=== PATIENT | female | born 1945 | race Caucasian/White ===

== ENCOUNTER → 2019-03-03 10:32 | Outpatient (CLI) | payer MEDICARE, SELFPAY ==
--- NOTE | 2019-03-03 | DI.MG.S_ITS ---
BILATERAL DIGITAL SCREENING MAMMOGRAM 3D/2D WITH CAD: 03/03/2019 CLINICAL: Routine screening. Family history of breast cancer. Comparison is made to exams dated: 02/17/2018 mammogram, 11/29/2016 mammogram - [facility], and 09/19/2015 mammogram - [facility]. The tissue of both breasts is heterogeneously dense. This may lower the sensitivity of mammography. Current study was also evaluated with a Computer Aided Detection (CAD) system. No significant masses, calcifications, or other findings are seen in either breast. There has been no significant interval change. IMPRESSION: NEGATIVE There is no mammographic evidence of malignancy. A 1 year screening mammogram is recommended. This exam was interpreted at Station ID: [id number]. NOTE: For mammograms, a report in lay terms will be sent to the patient. Approximately 15% of breast malignancies will not be visualized mammographically. In the management of a palpable breast mass, a negative mammogram must not discourage biopsy of a clinically suspicious lesion. Electronically Signed By: Cabrera pinto/deirdre:03/03/2019 12:46:49 letter sent: Normal Exam ACR BI-RADS Category 1: Negative 3341F
== END ==
PROVIDERS: Family Provider Family Medicine; PCP Family Medicine; Visit Provider Family Medicine
DX: Z12.31 Encounter for screening mammogram for malignant neoplasm of breast (principal); Z80.3 Family history of malignant neoplasm of breast
CPT/HCPCS: 77063; 77067

== ENCOUNTER → 2020-08-05 11:14 | Outpatient (CLI) | payer MEDICARE, SELFPAY ==
--- NOTE | 2020-08-05 | DI.MG.S_ITS ---
BILATERAL DIGITAL SCREENING MAMMOGRAM 3D/2D WITH CAD: 08/05/2020 CLINICAL: Routine screening. Family history of breast cancer. Comparison is made to exams dated: 03/03/2019 mammogram, 02/17/2018 mammogram, 11/29/2016 mammogram - [facility], 09/19/2015 mammogram, and 07/23/2014 mammogram - [facility]. The tissue of both breasts is heterogeneously dense. This may lower the sensitivity of mammography. Current study was also evaluated with a Computer Aided Detection (CAD) system. No significant masses, calcifications, or other findings are seen in either breast. There has been no significant interval change. IMPRESSION: NEGATIVE There is no mammographic evidence of malignancy. A 1 year screening mammogram is recommended. This exam was interpreted at Station ID: [id number]. NOTE: For mammograms, a report in lay terms will be sent to the patient. Approximately 15% of breast malignancies will not be visualized mammographically. In the management of a palpable breast mass, a negative mammogram must not discourage biopsy of a clinically suspicious lesion. Electronically Signed By: Kobe fair/deirdre:08/05/2020 11:49:53 letter sent: Normal Exam ACR BI-RADS Category 1: Negative 3341F
== END ==
PROVIDERS: Family Provider Family Medicine; PCP Family Medicine; Referring Provider Family Medicine; Visit Provider Family Medicine
DX: Z12.31 Encounter for screening mammogram for malignant neoplasm of breast (principal); Z80.3 Family history of malignant neoplasm of breast
CPT/HCPCS: 77063; 77067

== ENCOUNTER → 2021-03-22 08:47 | Outpatient (CLI) | payer MEDICARE, SELFPAY ==
--- NOTE | 2021-03-22 | DI.RAD.S_ITS ---
PROCEDURE: XR CHEST 2V INDICATIONS: COUGH TECHNIQUE: 2 views of the chest were acquired. COMPARISON: None. FINDINGS: Surgical changes and devices: None. Lungs and pleura: Lungs are clear. No pleural effusions or pneumothorax. Mediastinum: Mediastinal contours are normal. Heart size is normal. Bones and chest wall: No suspicious bony abnormalities. Soft tissues appear unremarkable. IMPRESSION: Normal for age, source of current cough symptoms is not seen. Dictated by: David Burgos M.D. on 03/22/2021 at 11:16 Approved by: David Burgos M.D. on 03/22/2021 at 11:16
[2021-03-22 09:49] LABS: Add Manual Diff / Slide Review NO; Basophils Absolute Auto 0 /uL (0-100); Basophils Percent Auto 0.6 % (0-2); Eosinophils Absolute Auto 100 /uL (0-450); Eosinophils Percent Auto 1.1 % (2-4); Hematocrit 43.5 % (36-46); Hemoglobin 14.7 g/dL (12.0-16.0); Lymphocytes Absolute Auto 1500 /uL (1100-4500); Lymphocytes Percent Auto 23.7 % (25-40); Mean Corpuscular HGB Conc 33.9 % (30-36); Mean Corpuscular Hemoglobin 32.1 PG (26-34); Mean Corpuscular Volume 94.6 fL (80-100); Monocytes Absolute Auto 400 /uL (0-900); Monocytes Percent Auto 6.5 % (3-14); Neutrophils Absolute Auto 4400 /uL (1500-7000); Neutrophils Percent Auto 68.1 % (50-75); Platelet Count 294 X10^3/uL (150-400); Red Cell Distribution Width 13.5 % (11.6-14.8); White Blood Cell Count 6.4 X10^3/uL (4.5-11.0)
[2021-03-22 10:39] LABS: Alanine Aminotransferase 19 IU/L (<35); Albumin 4.5 g/dL (3.5-5.0); Albumin Globulin Ratio 1.4 (1.0-2.8); Alkaline Phosphatase 77 U/L (38-126); Aspartate Aminotransferase 30 IU/L (14-36); BUN Creatinine Ratio 20.3 (6-22); Bilirubin Total 0.6 mg/dL (0.2-1.3); Blood Urea Nitrogen 13 mg/dL (7-17); Calcium 9.5 mg/dL (8.4-10.2); Carbon Dioxide 23 mmol/L (22-32); Chloride 106 mmol/L (98-107); Cholesterol 225 mg/dL (140-199); Estimated Glomerular Filt Rate > 60.0 mL/min (>60); Globulin 3.3 g/dL (1.7-4.1); Glucose 106 mg/dL (80-110); HDL Cholesterol 48 mg/dL (40-60); HEMOLYSIS 15 (0-50); LDL Cholesterol Calculated 146 mg/dL (<100); Potassium 3.5 mmol/L (3.4-5.1); Sodium 138 mmol/L (137-145); Total Protein 7.8 g/dL (6.3-8.2); Triglycerides 156 mg/dL (35-150)
== END ==
PROVIDERS: Family Provider Family Medicine; PCP Family Medicine; Referring Provider Family Medicine; Visit Provider Family Medicine
DX: R05 Cough (principal); Z79.899 Other long term (current) drug therapy; Z13.220 Encounter for screening for lipoid disorders
CPT/HCPCS: 36415; 71046; 80053; 80061; 85025

== ENCOUNTER → 2021-09-26 13:53 | Outpatient (CLI) | payer MEDICARE, SELFPAY ==
--- NOTE | 2021-09-26 13:54 | DI.MG.S_ITS ---
BILATERAL DIGITAL SCREENING MAMMOGRAM 3D/2D WITH CAD: 09/26/2021 CLINICAL: Routine screening. Family history of breast cancer. Comparison is made to exams dated: 08/05/2020 mammogram, 03/03/2019 mammogram, and 02/17/2018 mammogram - [facility]. The tissue of both breasts is heterogeneously dense. This may lower the sensitivity of mammography. Current study was also evaluated with a Computer Aided Detection (CAD) system. No significant masses, calcifications, or other findings are seen in either breast. There has been no significant interval change. IMPRESSION: NEGATIVE There is no mammographic evidence of malignancy. A 1 year screening mammogram is recommended. This exam was interpreted at Station ID: [id number]. NOTE: For mammograms, a report in lay terms will be sent to the patient. Approximately 15% of breast malignancies will not be visualized mammographically. In the management of a palpable breast mass, a negative mammogram must not discourage biopsy of a clinically suspicious lesion. Electronically Signed By: Alexandra fowler/deirdre:09/26/2021 14:47:02 letter sent: Normal Exam ACR BI-RADS Category 1: Negative 3341F
== END ==
PROVIDERS: Family Provider Family Medicine; PCP Family Medicine; Referring Provider Family Medicine; Visit Provider Family Medicine
DX: Z12.31 Encounter for screening mammogram for malignant neoplasm of breast (principal); Z80.3 Family history of malignant neoplasm of breast
CPT/HCPCS: 77063; 77067

== ENCOUNTER 2022-05-22 11:02 | Observation (INO) | payer MEDICARE, SELFPAY ==
[2022-05-22] VITALS (16 sets, daily range): BP systolic 114–165; BP diastolic 62–85; PULSE 60–79; RESP 12–25; TEMP 36.2–37.4; O2SAT 92–99; BMI 27.4
--- NOTE | 2022-05-22 11:26 | DI.RAD.S_ITS ---
PROCEDURE: XR CHEST 2V INDICATIONS: shortness of breath TECHNIQUE: 2 views of the chest were acquired. COMPARISON: [facility], CR, XR CHEST 2V, 03/22/2021, 9:16. FINDINGS: Surgical changes and devices: None. Lungs and pleura: Lungs are clear. No pleural effusions or pneumothorax. Mediastinum: Mediastinal contours are normal. Heart size is normal. Bones and chest wall: No suspicious bony abnormalities. Soft tissues appear unremarkable. IMPRESSION: No acute cardiopulmonary disease. Dictated by: Alexandra Barrera M.D. on 05/22/2022 at 11:47 Approved by: Alexandra Barrera M.D. on 05/22/2022 at 11:47
[2022-05-22 12:01] LABS: Add Manual Diff / Slide Review NO; Basophils Absolute Auto 100 /uL (0-100); Basophils Percent Auto 1.2 % (0-2); Eosinophils Absolute Auto 0 /uL (0-450); Eosinophils Percent Auto 0.5 % (2-4); Hematocrit 43.1 % (36-46); Hemoglobin 14.9 g/dL (12.0-16.0); Lymphocytes Absolute Auto 1400 /uL (1100-4500); Mean Corpuscular HGB Conc 34.7 % (30-36); Mean Corpuscular Hemoglobin 31.8 PG (26-34); Mean Corpuscular Volume 91.7 fL (80-100); Monocytes Absolute Auto 400 /uL (0-900); Monocytes Percent Auto 4.4 % (3-14); Neutrophils Absolute Auto 7200 /uL (1500-7000); Neutrophils Percent Auto 78.9 % (50-75); Platelet Count 273 X10^3/uL (150-400); Red Cell Distribution Width 13.2 % (11.6-14.8); White Blood Cell Count 9.2 X10^3/uL (4.5-11.0)
[2022-05-22 12:18] LABS: Lactate (Lactic Acid) 1.5 mmol/L (0.7-2.1)
[2022-05-22 12:19] LABS: Alanine Aminotransferase 23 IU/L (<35); Albumin 4.6 g/dL (3.5-5.0); Albumin Globulin Ratio 1.5 (1.0-2.8); Alkaline Phosphatase 82 U/L (38-126); Aspartate Aminotransferase 30 IU/L (14-36); BUN Creatinine Ratio 22.4 (6-22); Bilirubin Total 0.6 mg/dL (0.2-1.3); Blood Urea Nitrogen 17 mg/dL (7-17); Calcium 9.5 mg/dL (8.4-10.2); Carbon Dioxide 23 mmol/L (22-32); Chloride 106 mmol/L (98-107); Estimated Glomerular Filt Rate > 60 mL/min (>60); Globulin 3.1 g/dL (1.7-4.1); Glucose 117 mg/dL (80-110); HEMOLYSIS < 15 (0-50); Potassium 3.6 mmol/L (3.4-5.1); Sodium 139 mmol/L (137-145); Total Protein 7.7 g/dL (6.3-8.2)
[2022-05-22 12:56] LABS: Creatine Kinase 76 U/L (30-135)
[2022-05-22 12:57] LABS: Lipase 44 U/L (23-300)
[2022-05-22 13:07] LABS: NT-proBNP (BNP-Adult 18+) 162 pg/mL (<450)
[2022-05-22 13:08] LABS: Troponin I < 0.012 ng/mL (0.01-0.034)
--- NOTE | 2022-05-22 13:11 | PC.NURSE ---
Reports epigastric chest pain and abdominal pain x 2 days. Also has shortness of breath after exertion. Has history of cough x 6 months. Pinched nerves in my neck and back that have also been bothering me. Did not take any pain meds today that she has been taking for her neck/back pain. Reports that pain meds did not help yesterday with her chest pain.
--- NOTE | 2022-05-22 14:22 | ED_ITS ---
HPI - Chest Pain General Chief Complaint: Chest Pain Stated Complaint: SOB, pinched nerves in neck/back x 4 days Time Seen by Provider: 05/22/22 11:42 Source: patient Mode of arrival: Ambulatory Limitations: no limitations History of Present Illness HPI narrative: Patient is a 76-year-old female who has a history of chronic neck and back pain presents today with ongoing worsening pain. She also has intermittent shortness of breath however today she noticed significant shortness of breath going up the stairs. She also had some mild chest discomfort as well which radiated to her left. Her biggest complaint seems to be her worsening neck pain. Everything seems to have been going on for quite time. She has no weakness. She has no abdominal pain nausea or vomiting. She has not had any fever or chills. Related Data Home Medications Medication Instructions Recorded Confirmed [lidocaine] 5 TD PRN ##0 09/25/16 07/03/18 ibuprofen 200 mg capsule (Advil PRN ##0 09/25/16 07/03/18 Liqui-Gel) Previous Rx's Medication Instructions Recorded lorazepam 0.5 mg tablet 0.5 mg PO BID PRN anxiety #60 tabs 07/03/18 Allergies Allergy/AdvReac Type Severity Reaction Status Date / Time iodine [IODINE] AdvReac Severe Anaphylaxis Verified 05/22/22 11:23 Review of Systems Review of Systems Narrative: GENERAL: Denies chills, fatigue, malaise, fever, sweats, travel HEENT: Denies sinus pain, ear pain, sore throat, difficulty swallowing, neck pain RESPIRATORY: + increasing shortness of breath with exertion CARDIOVASCULAR: Denies chest pain, palpitations, orthopnea, edema GASTROINTESTINAL: Denies nausea, vomiting, abdominal pain, diarrhea, constipation, melena. : Denies dysuria, frequency, incontinence, hematuria, urinary retention, flank pain. MUSCULOSKELETAL: Denies weakness, joint pain, or bony pain SKIN: No rash, no erythema, no pruritus NEUROLOGIC: Denies weakness, dizziness, headache, numbness, change in speech, confusion PSYCHIATRIC: No concerning psychosocial issues. 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 Social History Smoking Status: Never smoker Smoking Status: Never smoker alcohol intake frequency: holidays/special occasions only Substance Use Type: does not use Exam Initial Vital Signs Initial Vital Signs: Vital Signs Temperature 97.2 F L 05/22/22 11:23 Pulse Rate 60 05/22/22 11:23 Respiratory Rate 16 05/22/22 11:23 Blood Pressure 157/73 H 05/22/22 11:23 Pulse Oximetry 98 05/22/22 11:23 Oxygen Delivery Method 05/22/22 11:23 GENERAL: Alert pleasant 76-year-old female appears uncomfortable HEENT: Head atraumatic,EOMI, pupils reactive, face symmetric, [moist] mucous membranes CARDIOVASCULAR: Regular rate and rhythm without murmurs, rubs or gallops. RESPIRATORY: Breath sounds equal bilaterally, no wheezes rales or rhonchi. ABDOMEN: Soft, nontender. Normoactive bowel sounds all 4 quadrants. No guardin g or rebound. EXTREMITIES: Normal range of motion, no clubbing or edema. Neurovascularly intact NEUROLOGICAL: Alert and oriented x4. 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 Scores HEART Score Heart Score history: Highly Suspicious Heart Score EKG: Non-Specific repolarization disturbance Heart Score Age: > or = 65 years old Heart Score risk factors: 1-2 risk factors Heart Score troponin: < or = to normal limit Heart Score Total: 6 Course Orders Ordered: ED Orders 05/22/22 11:26 XR chest 2V Stat EKG-12 Lead Stat 05/22/22 11:35 A1C [Hemoglobin A1C% w Est Avg Glu] Stat Complete Blood Count AUTO DIFF Stat Comprehensive Metabolic Panel Stat D Dimer Stat Lactate (Lactic Acid) Stat Lipase Stat NT-proBNP (BNP-Adult 18+) Stat Troponin & CK Cardiac Panel Stat 05/22/22 14:30 Trop I [Troponin I] Stat 05/22/22 17:56 EC echo doppler complete Stat stress [NM tami perf SPECT rest & str] Stat 05/22/22 22:30 Troponin I Q8H 05/23/22 05:00 BMP [Basic Metabolic Panel] DAILY CBC Auto Diff [Complete Blood Count AUTO DIFF] DAILY 05/24/22 05:00 BMP [Basic Metabolic Panel] DAILY CBC Auto Diff [Complete Blood Count AUTO DIFF] DAILY 05/25/22 05:00 BMP [Basic Metabolic Panel] DAILY CBC Auto Diff [Complete Blood Count AUTO DIFF] DAILY Acetaminophen (Acetaminophen 325 Mg Tablet) 650 mg PO Q6HR PRN PRN Reason: Fever/Mild Pain (1-3) Aspirin (Aspirin Ec 81 Mg Tablet) 81 mg PO DAILY [facility] Enoxaparin Sodium (Enoxaparin 40 Mg/0.4 Ml Syringe) 40 mg SUBCUT DAILY GLO Morphine Sulfate (Morphine 2 Mg/Ml Inj) 2 mg IV Q4HR PRN PRN Reason: Chest Pain Potassium Chloride (Potassium Chloride 20 Meq Tab) 40 meq PO NOW ONE Stop: 05/22/22 19:08 Discontinued Medications Albuterol/Ipratropium (Albuterol/Ipratropium 3 Ml Ampul) 3 ml INH NOW ONE Stop: 05/22/22 14:35 Last Admin: 05/22/22 15:00 Dose: 3 ml Documented By: TANIA Aspirin (Aspirin 81 Mg Chew Tab) 324 mg PO NOW ONE Stop: 05/22/22 17:06 Last Admin: 05/22/22 17:26 Dose: 324 mg Documented By: TANIA Hydromorphone HCl (Hydromorphone 0.5 Mg Inj) 0.5 mg IV NOW ONE Stop: 05/22/22 14:35 Last Admin: 05/22/22 15:00 Dose: 0.5 mg Documented By: TANIA Vital Signs Vital signs: Vital Signs - 8 hr 05/22/22 13:03 05/22/22 13:05 05/22/22 13:05 Pulse Rate 65 61 Respiratory Rate 22 22 Blood Pressure 156/74 H Pulse Oximetry 94 98 Oxygen Delivery Method Room Air 05/22/22 13:30 05/22/22 13:31 05/22/22 13:31 Pulse Rate 61 61 Respiratory Rate 18 12 Blood Pressure 146/62 H Pulse Oximetry 95 95 Oxygen Delivery Method 05/22/22 14:00 05/22/22 14:00 05/22/22 14:30 Pulse Rate 63 Respiratory Rate 15 Blood Pressure 153/71 H 114/80 Pulse Oximetry 92 Oxygen Delivery Method 05/22/22 14:30 05/22/22 15:00 05/22/22 15:00 Pulse Rate 72 75 Respiratory Rate 22 Blood Pressure 117/76 Pulse Oximetry 96 95 Oxygen Delivery Method 05/22/22 15:18 05/22/22 15:30 05/22/22 15:30 Pulse Rate 67 72 Respiratory Rate 16 20 Blood Pressure 117/82 Pulse Oximetry 94 95 Oxygen Delivery Method Room Air 05/22/22 16:00 05/22/22 16:00 05/22/22 16:30 Pulse Rate 73 Respiratory Rate 20 Blood Pressure 152/70 H 139/67 Pulse Oximetry 94 Oxygen Delivery Method 05/22/22 16:30 05/22/22 17:00 05/22/22 17:01 Pulse Rate 78 79 79 Respiratory Rate 16 15 Blood Pressure Pulse Oximetry 92 94 93 Oxygen Delivery Method 05/22/22 17:01 05/22/22 17:30 05/22/22 17:30 Pulse Rate 77 Respiratory Rate 25 H Blood Pressure 165/74 H 143/83 H Pulse Oximetry 94 Oxygen Delivery Method MDM - Chest Pain Lab Data Result diagrams: 05/22/22 11:35 05/22/22 11:35 Labs: Lab Results 05/22/22 05/22/22 05/22/22 Range/Units 11:35 11:35 11:35 WBC 9.2 (4.5-11.0) X10^3/uL RBC 4.70 (4.0-5.2) X10^6/uL Hgb 14.9 (12.0-16.0) g/dL Hct 43.1 (36-46) % MCV 91.7 (80-100) fL MCH 31.8 (26-34) PG MCHC 34.7 (30-36) % RDW 13.2 (11.6-14.8) % Plt Count 273 (150-400) X10^3/uL Neut % (Auto) 78.9 H (50-75) % Lymph % (Auto) 15.0 L (25-40) % Mckinley % (Auto) 4.4 (3-14) % Eos % (Auto) 0.5 L (2-4) % Baso % (Auto) 1.2 (0-2) % Neut # (Auto) 7200 H (4877-6407) /uL Lymph # (Auto) 1400 (4500-6429) /uL Mckinley # (Auto) 400 (0-900) /uL Eos # (Auto) 0 (0-450) /uL Baso # (Auto) 100 (0-100) /uL D-Dimer (<230) ng/mL Sodium 139 (137-145) mmol/L Potassium 3.6 (3.4-5.1) mmol/L Chloride 106 (98-107) mmol/L Carbon Dioxide 23 (22-32) mmol/L BUN 17 (7-17) mg/dL Creatinine 0.76 (0.52-1.04) mg/dL Estimated GFR > 60 (>60) mL/min BUN/Creatinine Ratio 22.4 H (6-22) Glucose 117 H (80-110) mg/dL Lactate 1.5 (0.7-2.1) mmol/L Calcium 9.5 (8.4-10.2) mg/dL Total Bilirubin 0.6 (0.2-1.3) mg/dL AST 30 (14-36) IU/L ALT 23 (<35) IU/L Alkaline Phosphatase 82 (38-126) U/L Total Creatine Kinase (30-135) U/L CK-MB (CK-2) CK-MB (CK-2) Rel Index Troponin I (0.01-0.034) ng/mL NT-Pro-B Natriuret Pep (<450) pg/mL Total Protein 7.7 (6.3-8.2) g/dL Albumin 4.6 (3.5-5.0) g/dL Globulin 3.1 (1.7-4.1) g/dL Albumin/Globulin Ratio 1.5 (1.0-2.8) Lipase (23-300) U/L 05/22/22 05/22/22 05/22/22 Range/Units 11:35 11:35 11:35 WBC (4.5-11.0) X10^3/uL RBC (4.0-5.2) X10^6/uL Hgb (12.0-16.0) g/dL Hct (36-46) % MCV (80-100) fL MCH (26-34) PG MCHC (30-36) % RDW (11.6-14.8) % Plt Count (150-400) X10^3/uL Neut % (Auto) (50-75) % Lymph % (Auto) (25-40) % Mckinley % (Auto) (3-14) % Eos % (Auto) (2-4) % Baso % (Auto) (0-2) % Neut # (Auto) (1271-7018) /uL Lymph # (Auto) (0207-9878) /uL Mckinley # (Auto) (0-900) /uL Eos # (Auto) (0-450) /uL Baso # (Auto) (0-100) /uL D-Dimer (<230) ng/mL Sodium (137-145) mmol/L Potassium (3.4-5.1) mmol/L Chloride (98-107) mmol/L Carbon Dioxide (22-32) mmol/L BUN (7-17) mg/dL Creatinine (0.52-1.04) mg/dL Estimated GFR (>60) mL/min BUN/Creatinine Ratio (6-22) Glucose (80-110) mg/dL Lactate (0.7-2.1) mmol/L Calcium (8.4-10.2) mg/dL Total Bilirubin (0.2-1.3) mg/dL AST (14-36) IU/L ALT (<35) IU/L Alkaline Phosphatase (38-126) U/L Total Creatine Kinase 76 (30-135) U/L CK-MB (CK-2) TNP CK-MB (CK-2) Rel Index TNP Troponin I < 0.012 (0.01-0.034) ng/mL NT-Pro-B Natriuret Pep 162 (<450) pg/mL Total Protein (6.3-8.2) g/dL Albumin (3.5-5.0) g/dL Globulin (1.7-4.1) g/dL Albumin/Globulin Ratio (1.0-2.8) Lipase 44 (23-300) U/L 05/22/22 05/22/22 Range/Units 11:35 14:30 WBC (4.5-11.0) X10^3/uL RBC (4.0-5.2) X10^6/uL Hgb (12.0-16.0) g/dL Hct (36-46) % MCV (80-100) fL MCH (26-34) PG MCHC (30-36) % RDW (11.6-14.8) % Plt Count (150-400) X10^3/uL Neut % (Auto) (50-75) % Lymph % (Auto) (25-40) % Mckinley % (Auto) (3-14) % Eos % (Auto) (2-4) % Baso % (Auto) (0-2) % Neut # (Auto) (1325-0390) /uL Lymph # (Auto) (7853-9955) /uL Mckinley # (Auto) (0-900) /uL Eos # (Auto) (0-450) /uL Baso # (Auto) (0-100) /uL D-Dimer < 200 (<230) ng/mL Sodium (137-145) mmol/L Potassium (3.4-5.1) mmol/L Chloride (98-107) mmol/L Carbon Dioxide (22-32) mmol/L BUN (7-17) mg/dL Creatinine (0.52-1.04) mg/dL Estimated GFR (>60) mL/min BUN/Creatinine Ratio (6-22) Glucose (80-110) mg/dL Lactate (0.7-2.1) mmol/L Calcium (8.4-10.2) mg/dL Total Bilirubin (0.2-1.3) mg/dL AST (14-36) IU/L ALT (<35) IU/L Alkaline Phosphatase (38-126) U/L Total Creatine Kinase (30-135) U/L CK-MB (CK-2) CK-MB (CK-2) Rel Index Troponin I 0.017 (0.01-0.034) ng/mL NT-Pro-B Natriuret Pep (<450) pg/mL Total Protein (6.3-8.2) g/dL Albumin (3.5-5.0) g/dL Globulin (1.7-4.1) g/dL Albumin/Globulin Ratio (1.0-2.8) Lipase (23-300) U/L Imaging Data Chest x-ray: Radiologist's Impression: XRay Report Signed Patient: Priscila Neri MR#: [id number] : 1945 Acct:[id number] Age/Sex: 76 / F Date of Service: 05/22/22 Loc: ED Accession Number: [id number] ?? Procedure: XR chest 2V Ordering Provider: Rosemary Medina D.O. PROCEDURE:? XR CHEST 2V ? INDICATIONS:? shortness of breath ? TECHNIQUE:? 2 views of the chest were acquired.? ? COMPARISON:? [facility], , XR CHEST 2V, 03/22/2021, 9:16. ? FINDINGS:? ? Surgical changes and devices:? None.? ? Lungs and pleura:? Lungs are clear.? No pleural effusions or pneumothorax.? ? Mediastinum:? Mediastinal contours are normal.? Heart size is normal.? ? Bones and chest wall:? No suspicious bony abnormalities.? Soft tissues appear unremarkable.? ? IMPRESSION:? No acute cardiopulmonary disease.? ? ? Dictated by: Alexandra Barrera M.D. on 05/22/2022 at 11:47 ? ? ECG Data Interpretation: EKG 1. Sinus rhythm rate 59 IL interval 162 QRS 78 QTC 443 T-wave inversion noted in precordial leads V2 V3 by walk and lead [address] elevations no priors to compare EKG 2. Sinus rhythm improved T-wave inversion improved but still present in V3 V2 MDM Narrative Medical decision making narrative: Patient states that she is having increasing shortness of breath with exertion chest pain that radiates to her left arm. She actually has some concerning EKG changes which we have no priors to compare and actually improved with the 2nd. She does have hyperlipidemia which she says she is not taking medication for. Dr. Garrido except for chest pain rule out Discharge Plan Departure Patient Disposition: Admitted as Observation Clinical Impression: Chest pain Admit Date/Time: 05/22/22 18:19 Admit Provider: Adan Pratt
[2022-05-22] MEDS: ALBUTEROL/IPRATROPIUM 3 ML AMPUL INH (15:00)
[2022-05-22] MEDS: HYDROMORPHONE 0.5 MG INJ IV (15:00)
[2022-05-22 15:11] LABS: D Dimer < 200 ng/mL (<230)
[2022-05-22 16:19] LABS: Troponin I 0.017 ng/mL (0.01-0.034)
[2022-05-22] MEDS: ASPIRIN 81 MG CHEW TAB 324 MG PO (17:26)
--- NOTE | 2022-05-22 17:56 | DI.NM.S_ITS ---
PROCEDURE: NM TERRY PERF SPECT R&S PHARM Rest and pharmacological stress myocardial perfusion SPECT with gated imaging and ejection fraction RADIOPHARMACEUTICAL: 8.2 mCi Tc-99m tetrafosmin IV at rest and 26.1 mCi Tc-99m tetrafosmin IV at peak effect of pharmacological stress. [id number] was performed. INDICATIONS: chest pain rule out TECHNIQUE: Radiopharmaceutical was injected at peak stress test, and also at rest. SPECT images were obtained. SPECT myocardial perfusion images were displayed in short axis, horizontal long axis, and vertical long axis views. Gated images were reviewed using [employer] software. COMPARISON: None. CARDIAC STRESS: A pharmacologic stress test was performed under the supervision of an attending staff, using an infusion of lexiscan . Hemodynamic data: There is normal blood pressure and heart rate response to pharmacologic stress. Symptoms: The patient denied anginal chest pain. Aminophylline: none EKG: Normal sinus rhythm with no ST changes at rest. Non-specific ST depressions with lexiscan; occasional PVCs during the study. FINDINGS: Raw data: There is good myocardial uptake of radiotracer. No significant motion artifacts. Left ventricle function: Gated images demonstrate normal left ventricular wall thickening. No segmental wall motion abnormalities. No transient ischemic dilation; TID is 0.92 (normal less than 1.3). Left ventricle resting end diastolic volume is 59 mL. Left ventricle stress ejection fraction is 93%; normal range is above 45%. Myocardial perfusion: There is moderately intense inferior wall defect at rest that improves with stress supine images and resolves with stress prone images, suggesting diaphragmatic attenuation. No ischemia or infarction present. IMPRESSION: Low risk, normal pharmaceutical nuclear stress test. 1) No perfusion evidence of ischemia or infarction. There is moderately intense inferior wall defect at rest that improves with stress supine images and resolves with stress prone images, suggesting diaphragmatic attenuation. 2) Normal left ventricular size, wall motion, and systolic function (EF post stress 93%). 3) No diagnostic ST changes with lexsican. 4) No angina during the study. 5) No prior nuclear stress test available for comparison. Dictated by: Dutch Turner MD on 05/23/2022 at 16:11 Approved by: Dutch Turner MD on 05/23/2022 at 16:14
--- NOTE | 2022-05-22 17:56 | DI.ECHO.S_ITS ---
[facility] +---------+ : : [address] : [place] : : : : [phone] : : : : Phone: [phone]+ Echocardiogram Report + + :Name: ERNESTINE CARUSO Study Date: 05/23/2022 Height: 62 in : :[facility] ReadingLocation: Weight: 150 lb : : Gender: Female BSA: 1.7 m2 : :: 1945 Age: 76 yrs BP: 153/85 mmHg: :Reason For Study: CHEST PAIN : :Ordering Physician: SB TALLEY : :Vito Weinstein Performed By: Wendy Rivers : :Referring: SB TALLEY D.O. : + + Interpretation Summary 1) Normal left ventricular thickness, size, wall motion, and systolic function (EF 60-65%). 2) Normal right ventricular size and function. 3) No significant valvular abnormalities. 4) No prior Echo available for comparison. Procedure: A two-dimensional transthoracic echocardiogram with color flow and Doppler was performed. The study quality was technically adequate. There is no prior echocardiogram noted for this patient. The patient was in sinus rhythm with heart rates between 50-60 bpm during the exam. Left Ventricle: The left ventricle is normal in size and wall thickness. The ejection fraction is estimated to be 60-65%. Left ventricular systolic function appears normal without focal wall motion abnormalities. Right Ventricle: The right ventricle is normal in size and function. Atria: The left atrium is moderately dilated. Right atrial size is normal. There is no Doppler evidence for an interatrial shunt. Mitral Valve: The mitral valve is normal in structure and function. There is trace mitral regurgitation. Aortic Valve: The aortic valve is trileaflet. The aortic valve opens well. There is no aortic valve stenosis. No aortic regurgitation is present. Tricuspid Valve: The tricuspid valve is normal in structure and function. There is trace tricuspid regurgitation. Pulmonary artery pressures cannot be estimated because of the lack of a measurable TR jet velocity. Pulmonic Valve: The pulmonic valve leaflets are thin and pliable; valve motion is normal. There is trace pulmonic regurgitation. Great Vessels: The aortic root is normal size. The dimensions of the ascending aorta are normal. The IVC is of normal diameter and collapses greater than 50% with a sniff. This suggests a low right atrial pressure of 3 mm Hg. Pericardium/ Pleura There is no pericardial effusion. There is no pleural effusion. MMode/2D Measurements & Calculations LVIDd: 5.1 cm LVOT diam: 2.1 cm LVIDs: 3.3 cm Ao root diam: 3.1 cm FS: 35.3 % asc Aorta Diam: 3.2 cm EPSS: 0.80 cm Ao Arch Diam (Prox Trans): 2.7 cm IVSd: 0.80 cm LVPWd: 0.99 cm LV avalos. diameter/BSA (cm/m^2): 3.0 LV sys. diameter/BSA (cm/m^2): 1.9 LA A2 area: 21.5 cm2 RA long axis: 4.5 cm LA A4 area: 16.2 cm2 RA area: 13.1 cm2 LA length (vol): 5.1 cm RA vol: 32.8 ml LA vol: 57.9 ml RA : 19.4 ml/m2 LA vol index: 34.3 ml/m2 IVC diam: 1.5 cm RVD1 (basal): 3.2 cm RVD2 (mid): 2.7 cm TAPSE: 2.5 cm Doppler Measurements & Calculations Ao V2 max: 136.9 cm/sec LVOT Max Jn: 101.5 cm/sec Ao V2 mean: 94.2 cm/sec LV V1 max P.1 mmHg Ao max P.5 mmHg LV V1 VTI: 23.4 cm Ao mean P.9 mmHg BELTRAN(I,D): 2.6 cm2 Ao V2 VTI: 30.5 cm BELTRAN(V,D): 2.5 cm2 sev ratio: 0.77 BELTRAN indexed to BSA (cm^2/m^2): 1.5 MV E max jn: 71.4 cm/sec TR max jn: 230.6 cm/sec MV A max jn: 96.5 cm/sec TR max P.3 mmHg MV E/A: 0.74 PA V2 max: 95.1 cm/sec Med Peak E' Jn: 6.1 cm/sec PA V2 mean: 60.5 cm/sec E/E' med: 11.7 PA mean P.7 mmHg Lat Peak E' Jn: 7.1 cm/sec PA Accel Time: 0.10 sec E/E' lat: 10.1 E/e' average: 10.9 MV dec time: 0.34 sec SV(LVOT): 78.6 ml Reading Physician:09:15 AM
--- NOTE | 2022-05-22 18:08 | P.HP_ITS ---
History of Present Illness History of Present Illness Chief complaint: SOB, pinched nerves in neck/back x 4 days Narrative: Rachel Camargo is a 76-year-old female with past medical history of cervical spinal stenosis, fibromyalgia, RLS and anxiety who presents with chest pain and shortness of breath. Patient states she developed substernal chest pain radiating to left arm with exertional dyspnea starting yesterday. She has not been sleeping well due to the exacerbation of her neck and back pain. She states the pain down her left arm feels similar to previous radiculopathy from her neck, however she has not had chest pain or dyspnea other than one other occasion several years ago while in [place]. At that time she had an echocardiogram which was normal and were Holter monitor which was normal. She denies diaphoresis, nausea vomiting, abdominal pain, diarrhea, cough, shortness of breath or lower extremity swelling. In the ED patient had negative initial troponin, negative EKG, was hypertensive at 157/73. D-dimer negative. BNP 162. Lactate 1.5. Received aspirin loading dose. Admitted for chest pain rule out. 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 Safety & Behavioral: Feels Safe in Current Yes Environment Been Physically Hurt or No Threatened By a Person Tobacco & Substance use: Smoking Status Never smoker alcohol intake frequency holiday/special occasion Substance Use Type does not use Meds Home Medications and Allergies Home Medications Medication Instructions Recorded Confirmed Type [lidocaine] 5 TD PRN ##0 09/25/16 07/03/18 History ibuprofen 200 mg capsule (Advil PRN ##0 09/25/16 07/03/18 History Liqui-Gel) lorazepam 0.5 mg tablet 0.5 mg PO BID PRN anxiety #60 tabs 07/03/18 Rx Allergies Allergy/AdvReac Type Severity Reaction Status Date / Time iodine [IODINE] AdvReac Severe Anaphylaxis Verified 05/22/22 11:23 Review of Systems Review of Systems Narrative: All other systems reviewed with the patient and are negative unless otherwise stated. Exam Vital Signs (past 8 hours): - 05/22/22 11:23 05/22/22 13:03 05/22/22 13:05 Temperature 97.2 F L Pulse Rate 60 65 Respiratory Rate 16 22 Blood Pressure 157/73 H 156/74 H Pulse Oximetry 98 94 Oxygen Delivery Method Room Air Room Air 05/22/22 13:05 05/22/22 13:30 05/22/22 13:31 Temperature Pulse Rate 61 61 Respiratory Rate 22 18 Blood Pressure 146/62 H Pulse Oximetry 98 95 Oxygen Delivery Method 05/22/22 13:31 05/22/22 14:00 05/22/22 14:00 Temperature Pulse Rate 61 63 Respiratory Rate 12 15 Blood Pressure 153/71 H Pulse Oximetry 95 92 Oxygen Delivery Method 05/22/22 14:30 05/22/22 14:30 05/22/22 15:00 Temperature Pulse Rate 72 Respiratory Rate 22 Blood Pressure 114/80 117/76 Pulse Oximetry 96 Oxygen Delivery Method 05/22/22 15:00 05/22/22 15:18 05/22/22 15:30 Temperature Pulse Rate 75 67 Respiratory Rate 16 Blood Pressure 117/82 Pulse Oximetry 95 94 Oxygen Delivery Method Room Air 05/22/22 15:30 05/22/22 16:00 05/22/22 16:00 Temperature Pulse Rate 72 73 Respiratory Rate 20 20 Blood Pressure 152/70 H Pulse Oximetry 95 94 Oxygen Delivery Method 05/22/22 16:30 05/22/22 16:30 05/22/22 17:00 Temperature Pulse Rate 78 79 Respiratory Rate 16 Blood Pressure 139/67 Pulse Oximetry 92 94 Oxygen Delivery Method 05/22/22 17:01 05/22/22 17:01 05/22/22 17:30 Temperature Pulse Rate 79 Respiratory Rate 15 Blood Pressure 165/74 H 143/83 H Pulse Oximetry 93 Oxygen Delivery Method 05/22/22 17:30 Temperature Pulse Rate 77 Respiratory Rate 25 H Blood Pressure Pulse Oximetry 94 Oxygen Delivery Method Oxygen Delivery Method Room Air Narrative Exam Narrative: General:? Patient is well developed and well nourished, in no distress at this time. HEENT:? Normocephalic, atraumatic, extraocular muscles intact, oral pharynx is clear and mucous membranes are moist. Neck: supple and symmetric, trachea is midline, no cervical adenopathy. Negative for JVD Chest:? Normal AP diameter and contour without kyphoscoliosis, no tachypnea, equal chest rise bilaterally. Lungs:? CTA b/l no wheezing rhonchi or rales. Cardio:?RRR no m/r/g. Abdomen: S NT ND. No CVA tenderness. Musculoskeletal:? Muscle strength and tone are equal within normal limits, no deformity. Extremities: No edema or joint effusions. No cyanosis or clubbing. Skin:? Pale,? Warm to touch,dry and intact without rashes, ulcerations or pe techiae.? Neuro:? Alert and orientated x3,? sensation to touch intact in all extremities, no gross deficits noted of cranial nerves. Psych:? Patient has a well-kept appearance, appropriate affect, mental status attitude thought context and judgment are appropriate for age. Objective Labs Result Diagrams: 05/22/22 11:35 05/22/22 11:35 Labs: Laboratory Results - last 24 hr 05/22/22 05/22/22 05/22/22 11:35 11:35 11:35 WBC 9.2 RBC 4.70 Hgb 14.9 Hct 43.1 MCV 91.7 MCH 31.8 MCHC 34.7 RDW 13.2 Plt Count 273 Neut % (Auto) 78.9 H Lymph % (Auto) 15.0 L [place] % (Auto) 4.4 Eos % (Auto) 0.5 L Baso % (Auto) 1.2 Neut # (Auto) 7200 H Lymph # (Auto) 1400 [place] # (Auto) 400 Eos # (Auto) 0 Baso # (Auto) 100 D-Dimer Sodium 139 Potassium 3.6 Chloride 106 Carbon Dioxide 23 BUN 17 Creatinine 0.76 Estimated GFR > 60 BUN/Creatinine Ratio 22.4 H Glucose 117 H Lactate 1.5 Calcium 9.5 Total Bilirubin 0.6 AST 30 ALT 23 Alkaline Phosphatase 82 Total Creatine Kinase CK-MB (CK-2) CK-MB (CK-2) Rel Index Troponin I NT-Pro-B Natriuret Pep Total Protein 7.7 Albumin 4.6 Globulin 3.1 Albumin/Globulin Ratio 1.5 Lipase 05/22/22 05/22/22 05/22/22 11:35 11:35 11:35 WBC RBC Hgb Hct MCV MCH MCHC RDW Plt Count Neut % (Auto) Lymph % (Auto) [place] % (Auto) Eos % (Auto) Baso % (Auto) Neut # (Auto) Lymph # (Auto) [place] # (Auto) Eos # (Auto) Baso # (Auto) D-Dimer Sodium Potassium Chloride Carbon Dioxide BUN Creatinine Estimated GFR BUN/Creatinine Ratio Glucose Lactate Calcium Total Bilirubin AST ALT Alkaline Phosphatase Total Creatine Kinase 76 CK-MB (CK-2) TNP CK-MB (CK-2) Rel Index TNP Troponin I < 0.012 NT-Pro-B Natriuret Pep 162 Total Protein Albumin Globulin Albumin/Globulin Ratio Lipase 44 05/22/22 05/22/22 11:35 14:30 WBC RBC Hgb Hct MCV MCH MCHC RDW Plt Count Neut % (Auto) Lymph % (Auto) [place] % (Auto) Eos % (Auto) Baso % (Auto) Neut # (Auto) Lymph # (Auto) [place] # (Auto) Eos # (Auto) Baso # (Auto) D-Dimer < 200 Sodium Potassium Chloride Carbon Dioxide BUN Creatinine Estimated GFR BUN/Creatinine Ratio Glucose Lactate Calcium Total Bilirubin AST ALT Alkaline Phosphatase Total Creatine Kinase CK-MB (CK-2) CK-MB (CK-2) Rel Index Troponin I 0.017 NT-Pro-B Natriuret Pep Total Protein Albumin Globulin Albumin/Globulin Ratio Lipase Assessment & Plan Assessment & Plan narrative: Rachel Camargo is a 76-year-old female with past medical history of cervical spinal stenosis, fibromyalgia, RLS and anxiety who presents with chest pain. # chest pain rule out, acute present on admission -initial troponin negative x2, will trend -ECG showed no ST changes -nuclear medicine stress test in AM to rule out ACS -echocardiogram ordered -aspirin loaded in the ED. Continue 81 mg daily -NPO at midnight -keep K >4 and mag >2 # hypertension, acute -not on home blood pressure medications -consider starting antihypertensive during admission # hyperlipidemia, acute -LDL 146, cholesterol 246 -consider starting statin during admission # neck and back pain, chronic -patient has cervical stenosis and lumbar stenosis -pain medications as needed Code status is Full code. Proxy is Israel Neri. I have reviewed home meds and used all available resources to reconcile the home meds. Time Spent With Patient Critical Care time: I spent a total of [] minutes of critical care time on this patient's care today; this time is exclusive of procedural time.
--- NOTE | 2022-05-22 18:48 | PC.NURSE ---
Patient brought up from ER to room 224, oriented to call light. VSS. Dr. Garrido into see patient at this time. Will give report to oncoming shift.
[2022-05-22 18:52] LABS: COVID19 -Nasal RAPID Negative (Negative)
[2022-05-22] MEDS: POTASSIUM CHLORIDE 20 MEQ TAB 40 MEQ PO (20:28)
[2022-05-22] MEDS: OXYCODONE 5 MG/5 ML ORAL SOLUTION PO (21:17)
--- NOTE | 2022-05-22 21:57 | PC.ADMIT ---
[facility] [facility] Admission Note: The patient,Priscila Neri,76 y/o, was given written information regarding hospital policies, unit procedures and contact persons. Patient's smoking status: Never smoker. Vital Signs - 8 hr 05/22/22 14:00 05/22/22 14:00 05/22/22 14:30 Temperature Pulse Rate 63 Respiratory Rate 15 Blood Pressure 153/71 H 114/80 Pulse Oximetry 92 Oxygen Delivery Method 05/22/22 14:30 05/22/22 15:00 05/22/22 15:00 Temperature Pulse Rate 72 75 Respiratory Rate 22 Blood Pressure 117/76 Pulse Oximetry 96 95 Oxygen Delivery Method 05/22/22 15:18 05/22/22 15:30 05/22/22 15:30 Temperature Pulse Rate 67 72 Respiratory Rate 16 20 Blood Pressure 117/82 Pulse Oximetry 94 95 Oxygen Delivery Method Room Air 05/22/22 16:00 05/22/22 16:00 05/22/22 16:30 Temperature Pulse Rate 73 Respiratory Rate 20 Blood Pressure 152/70 H 139/67 Pulse Oximetry 94 Oxygen Delivery Method 05/22/22 16:30 05/22/22 17:00 05/22/22 17:01 Temperature Pulse Rate 78 79 79 Respiratory Rate 16 15 Blood Pressure Pulse Oximetry 92 94 93 Oxygen Delivery Method 05/22/22 17:01 05/22/22 17:30 05/22/22 17:30 Temperature Pulse Rate 77 Respiratory Rate 25 H Blood Pressure 165/74 H 143/83 H Pulse Oximetry 94 Oxygen Delivery Method 05/22/22 18:49 05/22/22 21:56 Temperature 99.3 F Pulse Rate 67 Respiratory Rate 18 Blood Pressure 153/85 H Pulse Oximetry 99 Oxygen Delivery Method Room Air Patient was brought to room 224 from ER on previous shift but admission done after shift change. Patient is alert and oriented. Breath sounds CTA with RA sat of 99%. HRR and telemetry reading was SR upon admission. BP elevated at 153/85. During admission questioning she reported chest pain as well as some labored breathing but did not want to take Morphine and symptoms resolved. At this time patient states she is still having chest pain but points to epigastric area when asked for location. Denies nausea. BT present and abdomen is soft. Denies dysuria, frequency or urgency with urination. Is able to turn herself in bed and up to bathroom with SBA. Does complain of chronic low back pain and was medicated with oxycodone after order obtained from [facility]. Wearing bilateral calf SCD's. Fall risk score is moderate but patient verbalizes understanding to call for assistance when getting out of bed so alarm is not in use at this time. Knows she will be NPO after 0000 except for ice chips as will be having stress test in a.m.
[2022-05-22 23:33] LABS: Troponin I < 0.012 ng/mL (0.01-0.034)
[2022-05-23 00:27] VITALS: BP 140/68; PULSE 58; RESP 18; TEMP 36.4; O2SAT 94
[2022-05-23 00:46] VITALS: BP 140/68; PULSE 58
[2022-05-23] MEDS: ZOLPIDEM 5 MG TABLET PO (00:46)
[2022-05-23] MEDS: lisinopriL 10 MG TABLET PO (00:46)
[2022-05-23 05:35] VITALS: BP 120/59; PULSE 64; RESP 18; TEMP 36.6; O2SAT 94
[2022-05-23 05:55] LABS: Add Manual Diff / Slide Review NO; Basophils Absolute Auto 0 /uL (0-100); Basophils Percent Auto 0.5 % (0-2); Eosinophils Absolute Auto 200 /uL (0-450); Eosinophils Percent Auto 2.1 % (2-4); Hematocrit 41.5 % (36-46); Hemoglobin 14.2 g/dL (12.0-16.0); Lymphocytes Absolute Auto 1200 /uL (1100-4500); Lymphocytes Percent Auto 16.4 % (25-40); Mean Corpuscular HGB Conc 34.1 % (30-36); Mean Corpuscular Hemoglobin 31.5 PG (26-34); Mean Corpuscular Volume 92.3 fL (80-100); Monocytes Absolute Auto 600 /uL (0-900); Monocytes Percent Auto 7.9 % (3-14); Neutrophils Absolute Auto 5200 /uL (1500-7000); Neutrophils Percent Auto 73.1 % (50-75); Platelet Count 247 X10^3/uL (150-400); Red Blood Cell Count 4.49 X10^6/uL (4.0-5.2); Red Cell Distribution Width 13.6 % (11.6-14.8); White Blood Cell Count 7.1 X10^3/uL (4.5-11.0)
[2022-05-23 06:04] LABS: BUN Creatinine Ratio 28.1 (6-22); Blood Urea Nitrogen 18 mg/dL (7-17); Calcium 8.9 mg/dL (8.4-10.2); Carbon Dioxide 27 mmol/L (22-32); Chloride 106 mmol/L (98-107); Estimated Glomerular Filt Rate > 60 mL/min (>60); Glucose 92 mg/dL (80-110); HEMOLYSIS 23 (0-50); Potassium 3.9 mmol/L (3.4-5.1); Sodium 138 mmol/L (137-145)
[2022-05-23] MEDS: OXYCODONE IR 5 MG TABLET PO ×4 (06:34→17:07)
[2022-05-23 08:20] VITALS: BP 139/64; PULSE 58; RESP 16; TEMP 36.8; O2SAT 93
[2022-05-23] MEDS: SODIUM CHLORIDE 0.9% FLUSH 10 ML IV (09:13)
[2022-05-23 09:14] VITALS: BP 139/64
[2022-05-23] MEDS: ASPIRIN EC 81 MG TABLET PO (09:16)
[2022-05-23] MEDS: ENOXAPARIN 40 MG/0.4 ML SYRINGE SUBCUT (09:16)
[2022-05-23] MEDS: ACETAMINOPHEN 325 MG TABLET 650 MG PO ×2 (10:04→17:07)
--- NOTE | 2022-05-23 11:52 | PM.TREADMILL ---
Cardiac Stress Test Report Referral & Results Date Patient Seen: 05/23/22 Time Patient Seen: 11:52 Requesting provider: Adan Pratt Indication: Chest pain, dyspnea Rest ECG: Sinus rhythm with nonspecific ST flattening Procedure Note: After Lexiscan injection had minimal dyspnea, no chest discomfort No significant ST changes after Lexiscan injection No ectopy Hypertensive at baseline Impression: Normal Lexiscan stress test Nuclear images pending Please note: Actual ECG tracings can be found in the PACS system.
[2022-05-23 12:59] VITALS: BP 104/79; PULSE 61; RESP 20; TEMP 36.9; O2SAT 95
--- NOTE | 2022-05-23 16:49 | PM.DS.1 ---
History of Present Illness History of Present Illness Date Patient Seen: 05/23/22 Time Patient Seen: 16:49 Chief complaint: SOB, pinched nerves in neck/back x 4 days Narrative: Patient continues to have neck and back pain. She thinks it has been associated with some chest pain and shortness of breath. She requests a Neurology referral for further evaluation. Discharge Providers Provider Date of admission: 05/22/22 18:19 Discharge Date: 05/23/22 Primary care physician: Kobe Willson MD Discharge provider: Sabiha Leger MD Summary Hospital Course Discharge Diagnosis: 1. Chest Pain, suspect non cardiac, Stress test negative 2. Hypertension 3. Hyperlipidemia 4. Chronic cervical and lumbar spine pain Hospital Course: Patient was admitted to the hospital for evaluation of chest pain. Her cardiac enzymes were normal. She underwent stress testing which was negative for ischemia. The patient was not hypoxic and was deemed appropriate for discharge home. She will follow up with Dr. Willson for a referral to neurology/neurosurgery as an outpatient. Status at Discharge Cognitive/behavioral status at discharge: oriented Functional status at discharge: independent ambulation Overall status at discharge: patient is progressing back to baseline Exam Vital Signs (past 8 hours): - 05/23/22 09:14 05/23/22 12:59 Temperature 98.5 F Pulse Rate 61 Respiratory Rate 20 Blood Pressure 139/64 104/79 Pulse Oximetry 95 Oxygen Flow Rate 0 Oxygen Delivery Method Room Air Oxygen Flow Rate 0 Narrative Exam Narrative: Pleasant female in no acute distress Resp Other: Lungs: clear to auscultation Cardio Other: CV: RRR nl Sl S2 2/6 JAZMINE GI Other: Soft/ non tender/ non distended Extrem Other: no edema Objective Labs Result Diagrams: 05/23/22 05:34 05/23/22 05:34 Labs: Laboratory Results - last 24 hr 05/22/22 05/22/22 05/23/22 18:28 22:37 05:34 WBC 7.1 RBC 4.49 Hgb 14.2 Hct 41.5 MCV 92.3 MCH 31.5 MCHC 34.1 RDW 13.6 Plt Count 247 Neut % (Auto) 73.1 Lymph % (Auto) 16.4 L [place] % (Auto) 7.9 Eos % (Auto) 2.1 Baso % (Auto) 0.5 Neut # (Auto) 5200 Lymph # (Auto) 1200 [place] # (Auto) 600 Eos # (Auto) 200 Baso # (Auto) 0 Sodium Potassium Chloride Carbon Dioxide BUN Creatinine Estimated GFR BUN/Creatinine Ratio Glucose Calcium Magnesium Troponin I < 0.012 SARS-CoV-2 (PCR) Negative 05/23/22 05/23/22 05:34 05:34 WBC RBC Hgb Hct MCV MCH MCHC RDW Plt Count Neut % (Auto) Lymph % (Auto) [place] % (Auto) Eos % (Auto) Baso % (Auto) Neut # (Auto) Lymph # (Auto) [place] # (Auto) Eos # (Auto) Baso # (Auto) Sodium 138 Potassium 3.9 Chloride 106 Carbon Dioxide 27 BUN 18 H Creatinine 0.64 Estimated GFR > 60 BUN/Creatinine Ratio 28.1 H Glucose 92 Calcium 8.9 Magnesium 2.0 Troponin I SARS-CoV-2 (PCR) [facility] Medical History Anxiety Anxiety Cardiac arrhythmia Cervical spine disease Chickenpox Chronic back pain Chronic pain syndrome (09/25/16) Colon polyps (2013) Eczema (1949) Fibromyalgia (09/25/16) Fibromyalgia (2005) Foot pain (2013) Fractures History of chronic back pain Lumbar disc disease Measles Mumps Osteoarthritis of spine with radiculopathy, 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 Social History household members: spouse Smoking Status: Never smoker Discharge Assessment & Plan Assessment and Plan Assessment: 1. Chest Pain, suspect non cardiac, Stress test negative 2. Hypertension 3. Hyperlipidemia 4. Chronic cervical and lumbar spine pain Plan of Treatment: Discharge home today F/u with Dr. Willson 1-2 weeks Discharge Plan Discharge Plan Patient Disposition: Home Discharge orders & Medications Prescriptions: Continued lorazepam 0.5 mg tablet 0.5 mg PO BID PRN (Reason: anxiety) Qty: 60 0RF Follow up/Referrals: Kobe Willson MD [Primary Care Provider] - Discharge Health Status Multidrug resistant organism: No MDRO Diet/Activity/Treatments Diet: Diet as Tolerated Discharge Data Primary Care Provider: Kobe Willson Attending Provider: Adan Pratt
[2022-05-24 05:36] LABS: Hemoglobin A1C% w Est Avg Glu 5.6 % (4.0-6.0)
== END 2022-05-23 17:31 | disposition home or self-care (01) ==
LOC: ED 17:46 → AC 18:19
PROVIDERS: Student in an Organized Health Care Education/Training Program; Admitting Provider Internal Medicine; Emergency Provider Emergency Medicine; Family Provider Family Medicine; PCP Family Medicine; Referring Provider Emergency Medicine; Visit Provider Internal Medicine
DX: R07.9 Chest pain, unspecified (principal); M48.02 Spinal stenosis, cervical region; M48.061 Spinal stenosis, lumbar region without neurogenic claudication; F41.9 Anxiety disorder, unspecified; I10 Essential (primary) hypertension; Z20.822 Contact with and (suspected) exposure to COVID-19
CPT/HCPCS: 36415; 71046; 78452; 80048; 80053; 82550; 83036; 83605; 83690; 83735; 83880; 84484; 85025; 85379; 87635; 93005; 93010; 93017; 93306; 94640; 96372; 96374; 99284; 99285; C9803; G0378; A9502; J1170; J1650; J2785

== ENCOUNTER → 2022-09-05 12:25 | Outpatient (CLI) | payer MEDICARE, SELFPAY ==
[2022-05-22 20:05] VITALS: BMI 27.4
--- NOTE | 2022-09-05 12:27 | DI.RAD.S_ITS ---
PROCEDURE: XR CHEST 2V INDICATIONS: Shortness of breath TECHNIQUE: 2 views of the chest were acquired. COMPARISON: [facility], , XR CHEST 2V, 05/22/2022, 11:38. FINDINGS: Surgical changes and devices: None. Lungs and pleura: Lungs are clear. No pleural effusions or pneumothorax. Mediastinum: Mediastinal contours are normal. Heart size is normal. Bones and chest wall: No suspicious bony abnormalities. Soft tissues appear unremarkable. IMPRESSION: No acute cardiopulmonary disease. Dictated by: Alexandra Barrera M.D. on 09/05/2022 at 15:09 Approved by: Alexandra Barrera M.D. on 09/05/2022 at 15:09
== END ==
PROVIDERS: Family Provider Family Medicine; PCP Family Medicine; Referring Provider Nurse Practitioner Family; Visit Provider Nurse Practitioner Family
DX: R06.02 Shortness of breath (principal)
CPT/HCPCS: 71046

== ENCOUNTER → 2022-11-20 14:32 | Outpatient (CLI) | payer MEDICARE, SELFPAY ==
[2022-05-22 20:05] VITALS: BMI 27.4
--- NOTE | 2022-11-20 14:32 | DI.MG.S_ITS ---
BILATERAL DIGITAL SCREENING MAMMOGRAM 3D/2D WITH CAD: 11/20/2022 CLINICAL: Routine screening. Family history of breast cancer. Comparison is made to exams dated: 09/26/2021 mammogram, 08/05/2020 mammogram, and 03/03/2019 mammogram - [facility]. Both breasts are heterogeneously dense, which may obscure small masses (category c / 51-75% glandular tissue). Current study was also evaluated with a Computer Aided Detection (CAD) system. No significant masses, calcifications, or other findings are seen in either breast. There has been no significant interval change. IMPRESSION: NEGATIVE There is no mammographic evidence of malignancy. A 1 year screening mammogram is recommended. Based on the Tyrer Cuzick model (a risk assessment model) the patient's lifetime risk is 2.0% and her 10 year risk is 0.0%. According to the ACR, ACS, and NCCN guidelines, an annual breast MRI exam along with mammogram is recommended if the patient's lifetime risk is 20% or greater. This exam was interpreted at Station ID: [id number]. NOTE: For mammograms, a report in lay terms will be sent to the patient. Approximately 15% of breast malignancies will not be visualized mammographically. In the management of a palpable breast mass, a negative mammogram must not discourage biopsy of a clinically suspicious lesion. Electronically Signed By: Preet jessica/deirdre:11/20/2022 15:01:20 letter sent: Normal Exam ACR BI-RADS Category 1: Negative 3341F
== END ==
PROVIDERS: Family Provider Family Medicine; PCP Family Medicine; Referring Provider Family Medicine; Visit Provider Family Medicine
DX: Z12.31 Encounter for screening mammogram for malignant neoplasm of breast (principal); Z80.3 Family history of malignant neoplasm of breast
CPT/HCPCS: 77063; 77067

== ENCOUNTER → 2023-06-10 06:47 | Outpatient (CLI) | payer MEDICARE, SELFPAY ==
[2022-05-22 20:05] VITALS: BMI 27.4
[2023-06-10 07:21] LABS: Add Manual Diff / Slide Review NO; Basophils Absolute Auto 0 /uL (0-100); Basophils Percent Auto 0.4 % (0-2); Eosinophils Absolute Auto 400 /uL (0-450); Eosinophils Percent Auto 5.2 % (2-4); Hematocrit 42.5 % (36-46); Hemoglobin 14.4 g/dL (12.0-16.0); Lymphocytes Absolute Auto 1900 /uL (1100-4500); Lymphocytes Percent Auto 25.8 % (25-40); Mean Corpuscular HGB Conc 33.9 % (30-36); Mean Corpuscular Hemoglobin 31.8 PG (26-34); Mean Corpuscular Volume 93.7 fL (80-100); Monocytes Absolute Auto 600 /uL (0-900); Monocytes Percent Auto 8.4 % (3-14); Neutrophils Absolute Auto 4400 /uL (1500-7000); Neutrophils Percent Auto 60.2 % (50-75); Platelet Count 282 X10^3/uL (150-400); Red Blood Cell Count 4.53 X10^6/uL (4.0-5.2); Red Cell Distribution Width 13.3 % (11.6-14.8); White Blood Cell Count 7.3 X10^3/uL (4.5-11.0)
[2023-06-10 07:30] LABS: Cholesterol 263 mg/dL (140-199); HDL Cholesterol 55 mg/dL (40-60); LDL Cholesterol Calculated 165 mg/dL (<100); Triglycerides 216 mg/dL (35-150)
== END ==
PROVIDERS: Family Provider Family Medicine; PCP Family Medicine; Referring Provider Family Medicine; Visit Provider Family Medicine
DX: E78.00 Pure hypercholesterolemia, unspecified (principal); Z79.899 Other long term (current) drug therapy
CPT/HCPCS: 36415; 80061; 85025

== ENCOUNTER → 2023-12-10 15:14 | Outpatient (CLI) | payer MEDICARE, SELFPAY ==
[2022-05-22 20:05] VITALS: BMI 27.4
--- NOTE | 2023-12-10 15:16 | DI.MG.S_ITS ---
BILATERAL DIGITAL SCREENING MAMMOGRAM 3D/2D WITH CAD: 12/10/2023 CLINICAL: Routine screening. Family history of breast cancer. Comparison is made to exams dated: 11/20/2022 mammogram, 09/26/2021 mammogram, and 08/05/2020 mammogram - [facility]. Both breasts are heterogeneously dense, which may obscure small masses (category c / 51-75% glandular tissue). Current study was also evaluated with a Computer Aided Detection (CAD) system. No significant masses, calcifications, or other findings are seen in either breast. There has been no significant interval change. IMPRESSION: NEGATIVE There is no mammographic evidence of malignancy. A 1 year screening mammogram is recommended. Based on the Tyrer Cuzick model (a risk assessment model) the patient's lifetime risk is 1.8% and her 10 year risk is 0.0%. According to the ACR, ACS, and NCCN guidelines, an annual breast MRI exam along with mammogram is recommended if the patient's lifetime risk is 20% or greater. This exam was interpreted at Station ID: [id number]. NOTE: For mammograms, a report in lay terms will be sent to the patient. Approximately 15% of breast malignancies will not be visualized mammographically. In the management of a palpable breast mass, a negative mammogram must not discourage biopsy of a clinically suspicious lesion. Electronically Signed By: Cabrera pinto/deirdre:12/11/2023 07:48:53 letter sent: Normal Exam ACR BI-RADS Category 1: Negative [id number]
== END ==
LOC: MAMMO 15:15
PROVIDERS: Family Provider Family Medicine; PCP Family Medicine; Referring Provider Family Medicine; Visit Provider Family Medicine
DX: Z12.31 Encounter for screening mammogram for malignant neoplasm of breast (principal); Z80.3 Family history of malignant neoplasm of breast; R92.333 Mammographic heterogeneous density, bilateral breasts
CPT/HCPCS: 77063; 77067

== ENCOUNTER 2024-03-06 12:06 | Inpatient (IN) | payer MEDICARE, SELFPAY ==
[2022-05-22 20:05] VITALS: BMI 27.4
[2024-03-06] VITALS (18 sets, daily range): BP systolic 111–183; BP diastolic 70–91; PULSE 62–96; RESP 12–22; TEMP 36–36.6; O2SAT 90–98; BMI 28.0
--- NOTE | 2024-03-06 | DI.RAD.S_ITS ---
PROCEDURE: XR FEMUR RT MIN 2V INDICATIONS: R INTRAMEDULLARY NAILING FEMUR POST OP TECHNIQUE: 4 views of the femur were acquired. COMPARISON: [facility], QUITA, XR HIP W PEL IF DONE RT 2V, 03/06/2024, 12:14. [facility], MG, MM SCREENING MAMMO BI, 12/10/2023, 15:25. [facility], CR, XR HIP W PEL IF DONE RT 2V, 03/06/2024, 16:40. FINDINGS: Bones: Postsurgical changes from ORIF of a right proximal femoral intertrochanteric fracture. Hardware appears intact without evidence of complication. Soft tissues: Overlying postsurgical changes are present. IMPRESSION: ORIF of right proximal femoral fracture. Improved alignment compared to prior. No evidence of hardware complication. Dictated by: Pj Bowman M.D. on 03/06/2024 at 19:20 Approved by: Pj Bowman M.D. on 03/06/2024 at 19:21
--- NOTE | 2024-03-06 | DI.RAD.S_ITS ---
PROCEDURE: XR HIP W PEL IF DONE RT 2V INDICATIONS: INTRAMEDULLARY NAILING TECHNIQUE: Intraoperative views of the hip were acquired. COMPARISON: [facility], CR, XR HIP W PEL IF DONE RT 2V, 03/06/2024, 12:14. FINDINGS: Bones: Intraoperative views during right hip ORIF. IMPRESSION: Intraoperative views during right hip ORIF. Dictated by: Pj Bowman M.D. on 03/06/2024 at 18:45 Approved by: Pj Bowman M.D. on 03/06/2024 at 18:45
--- NOTE | 2024-03-06 12:10 | DI.RAD.S_ITS ---
PROCEDURE: XR HIP W PEL IF DONE RT 2V INDICATIONS: pain after fall TECHNIQUE: AP pelvis with lateral view(s) of the right hip(s). COMPARISON: None. FINDINGS: Bones: Acute, comminuted, mildly displaced right intertrochanteric fracture which extends into the proximal femoral diaphysis. Pelvic ring appears intact. Moderate bilateral femoroacetabular joint space narrowing and juxta-articular osteophytosis. Degenerative changes of the lower lumbar spine, bilateral SI joints and pubic symphysis. No suspicious bony lesions. Soft tissues: The visualized bowel gas pattern is normal. No suspicious soft tissue calcifications. IMPRESSION: 1. Acute, comminuted, mildly displaced right intertrochanteric fracture which extends into the proximal femoral diaphysis. 2. Degenerative changes of the lower lumbar spine. Dictated by: Ulices Amaro M.D. on 03/06/2024 at 13:09 Approved by: Ulices Amaro M.D. on 03/06/2024 at 13:11
--- NOTE | 2024-03-06 12:20 | ED.LOWEXIN ---
HPI - Extremity Injury (Lower) General Chief Complaint: Extremity Injury, Lower Stated Complaint: GLF, Right Hip Pain Time Seen by Provider: 03/06/24 12:10 Source: patient and EMS Mode of arrival: EMS History of Present Illness HPI Narrative: 78-year-old female here for evaluation of right hip pain. Patient states she was at her normal state of health. She was trying to make her bed and thinks that she got caught up in the cord to the heating blanket and fell directly on her right hip. No other injuries from the event. He was unable to stand up and walk afterwards. She did arrive by EMS. She would received pain medication by EMS prior to arrival Related Data Home Medications Medication Instructions Recorded Confirmed escitalopram oxalate 20 mg tablet 20 mg PO DAILY 03/06/24 oxycodone-acetaminophen 7.5 mg-325 1 tab PO Q8H PRN pain 03/06/24 mg tablet zolpidem 10 mg tablet 10 mg PO ONCE PM PRN Sleep 03/06/24 03/06/24 Previous Rx's Medication Instructions Recorded lorazepam 0.5 mg tablet 0.5 mg PO BID PRN anxiety #60 tabs 07/03/18 Allergies Allergy/AdvReac Type Severity Reaction Status Date / Time iodine [IODINE] AdvReac Severe Anaphylaxis Verified 09/05/22 11:50 Review of Systems Constitutional Constitutional: Reports system reviewed and no additional complaints, except as documented Musculoskeletal Musculoskeletal: Reports system reviewed and no additional complaints, except as documented Integumentary/Breasts Skin/Breast: Reports system reviewed and no additional complaints, except as documented Neurologic Neurologic: Reports system reviewed and no additional complaints, except as documented Patient History Medical History Anxiety Cervical spine disease Chronic back pain Fibromyalgia (2005) Lumbar disc disease Foot pain (2013) Fractures Restless leg syndrome (2011) Anxiety Eczema (1949) Chickenpox Mumps Measles Retinal detachment Colon polyps (2013) Cardiac arrhythmia Restless legs syndrome (09/25/16) Osteoarthritis of spine with radiculopathy, 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 Social History household members: spouse Smoking Status: Never smoker Smoking Status: Never smoker alcohol intake frequency: holidays/special occasions only Substance Use Type: does not use Exam Initial Vital Signs Initial Vital Signs: Vital Signs Temperature 97.6 F 03/06/24 12:09 Pulse Rate 69 03/06/24 12:09 Respiratory Rate 20 03/06/24 12:09 Blood Pressure 183/88 H 03/06/24 12:09 Pulse Oximetry 95 03/06/24 12:09 Oxygen Delivery Method Room Air 03/06/24 12:09 Cardio Pulses: dorsalis pedis present on the right Neuro Sensory Exam: no sensory deficits noted Extrem Other: Discomfort with right hemipelvis Course Orders Ordered: ED Orders 03/06/24 12:10 XR hip w pel if done RT 2V Stat 03/06/24 12:55 Basic Metabolic Panel Stat Complete Blood Count AUTO DIFF Stat 03/06/24 12:59 Consult to Orthopedic Surgery Stat Sodium Chloride (Normal Saline 0.9%) 1,000 mls @ 100 mls/hr IV CONT GLO Last Admin: 03/06/24 12:44 Dose: 100 mls/hr Documented By: SPF Discontinued Medications Hydromorphone HCl (Hydromorphone 1 Mg Inj) 1 mg IV NOW ONE Stop: 03/06/24 12:53 Last Admin: 03/06/24 13:00 Dose: 1 mg Documented By: SPF Morphine Sulfate (Morphine 4 Mg/Ml Inj) 4 mg IV NOW ONE Stop: 03/06/24 12:29 Last Admin: 03/06/24 12:37 Dose: 4 mg Documented By: SPF Vital Signs Vital signs: Vital Signs - 8 hr 03/06/24 12:09 03/06/24 12:42 03/06/24 13:00 Temperature 97.6 F Pulse Rate 69 63 Respiratory Rate 20 Blood Pressure 183/88 H 178/86 H Pulse Oximetry 95 97 Oxygen Delivery Method Room Air 03/06/24 13:00 Temperature Pulse Rate 62 Respiratory Rate Blood Pressure Pulse Oximetry 96 Oxygen Delivery Method Room Air MDM - Extremity Injury (Lower) Lab Data Attestation: I reviewed the patient's lab results. 03/06/24 12:55 03/06/24 12:55 Labs: Lab Results 03/06/24 Range/Units 12:55 WBC 12.6 H (4.5-11.0) X10^3/uL RBC 4.37 (4.0-5.2) X10^6/uL Hgb 13.7 (12.0-16.0) g/dL Hct 41.1 (36-46) % MCV 94.0 (80-100) fL MCH 31.4 (26-34) PG MCHC 33.4 (30-36) % RDW 13.3 (11.6-14.8) % Plt Count 275 (150-400) X10^3/uL Neut % (Auto) 81.4 H (50-75) % Lymph % (Auto) 12.1 L (25-40) % [place] % (Auto) 5.4 (3-14) % Eos % (Auto) 0.7 L (2-4) % Baso % (Auto) 0.4 (0-2) % Neut # (Auto) 75826 H (8215-0827) /uL Lymph # (Auto) 1500 (4794-6016) /uL [place] # (Auto) 700 (0-900) /uL Eos # (Auto) 100 (0-450) /uL Baso # (Auto) 100 (0-100) /uL Sodium 140 (137-145) mmol/L Potassium 3.6 (3.4-5.1) mmol/L Chloride 109 H (98-107) mmol/L Carbon Dioxide 26 (22-32) mmol/L BUN 14 (7-17) mg/dL Creatinine 0.53 (0.52-1.04) mg/dL Estimated GFR > 60 (>60) mL/min BUN/Creatinine Ratio 26.4 H (6-22) Glucose 116 H (80-110) mg/dL Calcium 9.1 (8.4-10.2) mg/dL Imaging Data Extremity x-ray #1: Radiologist's Impression: PROCEDURE: XR HIP W PEL IF DONE RT 2V INDICATIONS: pain after fall TECHNIQUE: AP pelvis with lateral view(s) of the right hip(s). COMPARISON: None. FINDINGS: Bones: Acute, comminuted, mildly displaced right intertrochanteric fracture which extends into the proximal femoral diaphysis. Pelvic ring appears intact. Moderate bilateral femoroacetabular joint space narrowing and juxta-articular osteophytosis. Degenerative changes of the lower lumbar spine, bilateral SI joints and pubic symphysis. No suspicious bony lesions. Soft tissues: The visualized bowel gas pattern is normal. No suspicious soft tissue calcifications. IMPRESSION: 1. Acute, comminuted, mildly displaced right intertrochanteric fracture which extends into the proximal femoral diaphysis. 2. Degenerative changes of the lower lumbar spine. MDM Narrative Medical decision making narrative: This does appear to be a mechanical fall. She was not on anticoagulation. Did not hit her head. Alert and oriented x3. Only complaint is pain or right hip. X-ray shows intertrochanteric hip fracture. Discussed the case with Dr. Walker hospitalist on-call who will admit for further evaluation. Left a message for Dr. Naqvi orthopedist on-call with the OR staff. He was in surgery. Discussed the findings of the x-ray with the patient in the need for admission. Both her and her expressed understanding and agreement with plan. Discharge Plan Departure Patient Disposition: Admitted As Inpatient Clinical Impression: Intertrochanteric fracture of right hip Admit Date/Time: 03/06/24 13:09 Admit Provider: Atul Walker
[2024-03-06] MEDS: MORPHINE 4 MG/ML INJ IV (12:37)
[2024-03-06] MEDS: SODIUM CHLORIDE 0.9% 1,000 ML 100 ML IV ×4 (12:44→14:18)
[2024-03-06] MEDS: HYDROMORPHONE 1 MG INJ IV ×2 (13:00→23:50)
[2024-03-06 13:09] LABS: Add Manual Diff / Slide Review NO; Basophils Absolute Auto 100 /uL (0-100); Basophils Percent Auto 0.4 % (0-2); Eosinophils Absolute Auto 100 /uL (0-450); Eosinophils Percent Auto 0.7 % (2-4); Hematocrit 41.1 % (36-46); Hemoglobin 13.7 g/dL (12.0-16.0); Lymphocytes Absolute Auto 1500 /uL (1100-4500); Lymphocytes Percent Auto 12.1 % (25-40); Mean Corpuscular HGB Conc 33.4 % (30-36); Mean Corpuscular Hemoglobin 31.4 PG (26-34); Monocytes Absolute Auto 700 /uL (0-900); Monocytes Percent Auto 5.4 % (3-14); Neutrophils Absolute Auto 10200 /uL (1500-7000); Neutrophils Percent Auto 81.4 % (50-75); Platelet Count 275 X10^3/uL (150-400); Red Blood Cell Count 4.37 X10^6/uL (4.0-5.2); Red Cell Distribution Width 13.3 % (11.6-14.8); White Blood Cell Count 12.6 X10^3/uL (4.5-11.0)
--- NOTE | 2024-03-06 13:11 | P.HP_ITS ---
History of Present Illness History of Present Illness Date Patient Seen: 03/06/24 Chief complaint: GLF, Right Hip Pain Narrative: The patient is a 78-year-old female with right hip pain after a fall. She fell while making her bed. She got stuck in a cord. She denies other injuries. She had no other injuries. She was found to have a hip fracture in the ED on imaging. She denies any other injuries. She did receive fentanyl while in the ambulance EN route which was effective. In the emergency department her pain was poorly controlled with Dilaudid and morphine. He is having leg muscle spasm. She is trying not to move the leg at all. Orthopedics was contacted from the emergency department. The general plan is not known at this point. She will be made NPO now. IV fluids will be started. She does take oxycodone 7.5 mg about 2 tabs a day chronically. 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 Social History household members: spouse Smoking Status: Never smoker Meds Home Medications and Allergies Home Medications Medication Instructions Recorded Confirmed Type lorazepam 0.5 mg tablet 0.5 mg PO BID PRN anxiety #60 tabs 07/03/18 09/05/22 Rx escitalopram oxalate 20 mg tablet 20 mg PO DAILY 03/06/24 History oxycodone-acetaminophen 7.5 mg-325 1 tab PO Q8H PRN pain 03/06/24 History mg tablet zolpidem 10 mg tablet 10 mg PO ONCE PM PRN Sleep 03/06/24 03/06/24 History Allergies Allergy/AdvReac Type Severity Reaction Status Date / Time iodine [IODINE] AdvReac Severe Anaphylaxis Verified 09/05/22 11:50 Review of Systems Review of Systems Narrative: All else reviewed and otherwise unremarkable. Exam Vital Signs (past 8 hours): - 03/06/24 12:09 03/06/24 12:42 03/06/24 13:00 Temperature 97.6 F Pulse Rate 69 63 Respiratory Rate 20 Blood Pressure 183/88 H 178/86 H Pulse Oximetry 95 97 Oxygen Delivery Method Room Air 03/06/24 13:00 Temperature Pulse Rate 62 Respiratory Rate Blood Pressure Pulse Oximetry 96 Oxygen Delivery Method Room Air Oxygen Delivery Method Room Air Narrative Exam Narrative: NAD, alert and oriented, fluent speech, tearful and anxious. Normocephalic skull, EOMI, anicteric sclera, symmetric pupils. Oropharynx unremarkable, no droop. Neck supple, midline trachea, no adenopathy. Lungs clear, normal rate and effort. Heart regular, no murmur gallop or rub. Abdomen is soft, non distended and non tender. Extremities are free of edema. Skin is free of rash or lesions. Joints are not swollen or deformed. Judgment appears to be normal. Objective Imaging Hip Xray: Radiologist's impression: 1. Acute, comminuted, mildly displaced right intertrochanteric fracture which extends into the proximal femoral diaphysis. 2. Degenerative changes of the lower lumbar spine. Labs 03/06/24 12:55 03/06/24 12:55 Labs: Laboratory Results - last 24 hr 03/06/24 12:55 WBC 12.6 H RBC 4.37 Hgb 13.7 Hct 41.1 MCV 94.0 MCH 31.4 MCHC 33.4 RDW 13.3 Plt Count 275 Neut % (Auto) 81.4 H Lymph % (Auto) 12.1 L [place] % (Auto) 5.4 Eos % (Auto) 0.7 L Baso % (Auto) 0.4 Neut # (Auto) 77290 H Lymph # (Auto) 1500 [place] # (Auto) 700 Eos # (Auto) 100 Baso # (Auto) 100 Assessment & Plan Assessment & Plan narrative: 1. Right Hip Fracture, present on admission and active. 2. RLS, present on admission and active. 3. Fibromyalgia, present on admission and active. PLAN: -NPO. -IV fluids. -analgesia with Dilaudid, if this fails to help we will switch to fentanyl. -antianxiety and antispasm affect with Ativan. She is full resuscitation. She was accompanied by her proxy decision maker, her . Estimated to need at least 2 midnights of hospital level care. Inpatient status. Time Spent With Patient Time with patient: 30 to 49 minutes with 50% spent counseling/coordinating care Quality MIPS - Admit The patient?s Advance Care plan is not present because I confirmed today that the patient does not wish or was not able to name a surrogate decision maker or provide an Advance Care Plan.: Yes MIPS - Meds 'Current medications' to include all prescriptions, [id number] products, herbals, cannabis/cannabidiol products, and vitamin/mineral/dietary (nutritional) supplements. I have utilized all available resources to obtain, update, or review the patient?s current medications. [If Yes, STOP here]: Yes
[2024-03-06 13:19] LABS: BUN Creatinine Ratio 26.4 (6-22); Blood Urea Nitrogen 14 mg/dL (7-17); Calcium 9.1 mg/dL (8.4-10.2); Carbon Dioxide 26 mmol/L (22-32); Chloride 109 mmol/L (98-107); Estimated Glomerular Filt Rate > 60 mL/min (>60); Glucose 116 mg/dL (80-110); HEMOLYSIS < 15 (0-50); Potassium 3.6 mmol/L (3.4-5.1); Sodium 140 mmol/L (137-145)
[2024-03-06] MEDS: HYDROMORPHONE 0.5 MG INJ 1 MG IV (14:05)
[2024-03-06] MEDS: LORazepam 2 MG/ML INJ 0.5 MG IV ×2 (14:14→22:15)
[2024-03-06] MEDS: fentaNYL 100 MCG/2 ML INJ 25 MCG IV ×3 (14:53→21:03)
--- NOTE | 2024-03-06 15:34 | PM.HP.1 ---
History of Present Illness History of Present Illness Date Patient Seen: 03/06/24 Time Patient Seen: 15:34 Date of Onset of Symptoms: 03/06/24 Chief complaint: GLF, Right Hip Pain Narrative: This is a 78-year-old female patient who had a ground level fall today after getting her foot caught in a cord. She sustained a intertrochanteric right hip fracture. She was brought here via EMS. I evaluated her in the hospital. She reports no pain anywhere other than her right leg. She reports no numbness extending down her leg. 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 Social History household members: spouse Smoking Status: Never smoker Meds Home Medications and Allergies Home Medications Medication Instructions Recorded Confirmed Type lorazepam 0.5 mg tablet 0.5 mg PO BID PRN anxiety #60 tabs 07/03/18 09/05/22 Rx escitalopram oxalate 20 mg tablet 20 mg PO DAILY 03/06/24 History oxycodone-acetaminophen 7.5 mg-325 1 tab PO Q8H PRN pain 03/06/24 History mg tablet zolpidem 10 mg tablet 10 mg PO ONCE PM PRN Sleep 03/06/24 03/06/24 History Allergies Allergy/AdvReac Type Severity Reaction Status Date / Time iodine [IODINE] AdvReac Severe Anaphylaxis Verified 09/05/22 11:50 Review of Systems Review of Systems ROS: Yes All systems reviewed with the patient and are negative except as otherwise documented Exam Vital Signs (past 8 hours): - 03/06/24 12:09 03/06/24 12:42 03/06/24 13:00 Temperature 97.6 F Pulse Rate 69 63 Respiratory Rate 20 Blood Pressure 183/88 H 178/86 H Pulse Oximetry 95 97 Oxygen Delivery Method Room Air Oxygen Flow Rate 03/06/24 13:00 03/06/24 13:30 03/06/24 13:30 Temperature Pulse Rate 62 70 Respiratory Rate Blood Pressure 160/76 H Pulse Oximetry 96 96 Oxygen Delivery Method Room Air Oxygen Flow Rate 03/06/24 15:00 Temperature 97.0 F L Pulse Rate 71 Respiratory Rate 16 Blood Pressure 169/84 H Pulse Oximetry 92 Oxygen Delivery Method Oxygen Flow Rate 0 Oxygen Delivery Method Room Air Oxygen Flow Rate 0 Narrative Exam Narrative: Right lower extremity: Range of motion examination deferred given known injury. Sensation intact to light touch in L2 through S1 nerve distributions. Flexes and extends hallux and ankle Const General: cooperative Orientation: alert and awake HENMT Head: normal to inspection Ears: hearing grossly normal bilaterally Eyes General: appearance normal, both eyes and all related structures Neck Neck: normal visual inspection Resp Effort & Inspection: normal respiratory effort and able to speak in complete sentences Cardio Pulses: other (peripheral pulses present) Skin Lesions: no lesions Rashes: no rashes Neuro General: patient alert, patient awake and moves all extremities Psych Appearance: grossly normal Objective Imaging Right femur x-ray: My impression: Intertrochanteric fracture with a free lesser trochanter with a long medial split extending into the subtrochanteric region Labs 03/06/24 12:55 03/06/24 12:55 Labs: Laboratory Results - last 24 hr 03/06/24 12:55 WBC 12.6 H RBC 4.37 Hgb 13.7 Hct 41.1 MCV 94.0 MCH 31.4 MCHC 33.4 RDW 13.3 Plt Count 275 Neut % (Auto) 81.4 H Lymph % (Auto) 12.1 L [place] % (Auto) 5.4 Eos % (Auto) 0.7 L Baso % (Auto) 0.4 Neut # (Auto) 16213 H Lymph # (Auto) 1500 [place] # (Auto) 700 Eos # (Auto) 100 Baso # (Auto) 100 Sodium 140 Potassium 3.6 Chloride 109 H Carbon Dioxide 26 BUN 14 Creatinine 0.53 Estimated GFR > 60 BUN/Creatinine Ratio 26.4 H Glucose 116 H Calcium 9.1 Assessment & Plan Assessment and plan (1) Intertrochanteric fracture of right hip: Status: Acute Plan Plan to proceed with intramedullary nailing of right hip this evening. Patient has been counseled regarding the risks and benefits of surgery. Her operative site has been marked. Informed consent will be signed. Discussed long-term risks of nonunion, malunion, need for additional surgery, damage to surrounding structures. She understands these risks and wishes to proceed. Plan for her to be weight-bearing as tolerated postoperatively.
--- NOTE | 2024-03-06 15:56 | PC.NURSE ---
Patient arrived from ED at 1400 via gurney and slide board use to transfer patient. She is in 10/10 pain to R hip and R LE. She denies pain anywhere else. MD Walker arrived to bedside to evaluate patient and she is given prn IV dilauded, which she had stated was ineffective. Per orders IV pain medication changed to fentanyl, and she was given IV prn ativan. She is evaluated by MD Naqvi at bedside who explains procedure to patient and at bedside. She had been NPO since 0800 this a.m. and kept NPO, NS at 100 ml/hr. She had a daniels catheter placed at bedside and taken to preop area at approximately 1545 this afternoon.
[2024-03-06] MEDS: LACTATED RINGERS 1,000 ML 42 ML IV ×2 (16:01→17:34)
[2024-03-06] MEDS: CEFAZOLIN 2 GM/100 ML PREMIX 100 ML IV ×2 (16:17→23:52)
--- NOTE | 2024-03-06 16:40 | SUR.OPER ---
Supine on padded Sycamore table with bilateral legs secured in padded positioning boots and suspended in positioning spars, operative leg in traction per surgeon. Head on one pillow. Arm on non-operative side secured on padded armboard <90 degrees abduction. Arm on operative side padded and resting across chest then secured with tape over sheet. Padded perineal post in place per surgeon.
[2024-03-06] MEDS: BUPIVACAINE 0.25% (PF) 30 ML, EPINEPHrine 0.15 MG INJ (16:51)
[2024-03-06] MEDS: fentaNYL 100 MCG/2 ML INJ IV ×2 (18:25→18:31)
[2024-03-06] MEDS: OXYCODONE IR 5 MG TABLET PO (18:26)
--- NOTE | 2024-03-06 18:26 | P.OP_ITS ---
Operative Date/Time/Diagnoses Date of procedure: 03/06/24 Pre-op diagnosis: Intertrochanteric right hip fracture Post-op diagnosis: same Procedure & Clinicians Procedure: Intramedullary nailing of right intertrochanteric femur fracture Open reduction internal fixation of subtrochanteric right femur fracture with cerclage cable placement Same procedure as scheduled: Yes Surgeon: Cuco Naqvi Click Yes if Unassisted: Yes Anesthesia Type: General and Local Operative Notes Estimated Blood Loss (mL): 450 Procedure in detail: Right Hip Intramedullary Nailing for Intertrochanteric Femur Fracture Cerclage cable fixation of subtrochanteric right femur fracture Implants: * [employer] Nephew 10 mm x 36 cm InterTAN nail * 105 mm proximal lag screw * 100 mm proximal compression screw * 40 mm distal interlocking screw * [employer] Evos Cerclage Cable Procedure in detail: This patient presented to the hospital for hip pain and was found to have an intertrochanteric femur fracture on radiographic evaluation in the emergency department. ?As the on-call orthopedic surgeon I was consulted for management. ?The patient was admitted to the medicine service here at [facility] and received a preoperative evaluation to ensure that no optimization measures would be necessary to minimize the patient's risk for complications around surgery prior to proceeding with intramedullary nailing. ?After assessment from the advanced manufacturing engineer as well as anesthesia the patient was deemed optimized for surgery. ?Risks and benefits were discussed. ?All questions were answered. ?Informed consent was obtained. ?The operative site was marked. ?The patient was taken to the operating room and transferred onto a [place] table. ?All bony prominences were padded. ?A time-out procedure was performed verifying the correct patient identity, operative site, medical comorbidities, ASA score, and medication allergies. ?Injury radiographs displaying the injured hip were displayed in the room. ?Ancef and tranexamic acid were administered. Prior to incision fluoroscopy was utilized and I manipulated the fracture into an appropriate reduction. ?This involved traction and 0 degrees of internal rotation. I initially found that I had over distracted the fracture and slightly released traction to increase contact of the intertrochanteric fragment. ?Once satisfied with the radiographic appearance of the fracture on an AP hip radiograph as well as a lateral hip radiograph the patient was prepped and draped in the usual sterile fashion. ?I mapped out the start points fluoroscopically with the guidewire. ?I obtained a start point at the tip of the greater trochanter on the AP view aiming towards the lesser trochanter and centered in the greater trochanter aiming down the femoral shaft on the lateral view. ?The guidewire was inserted and an opening Reamer was utilized to gain access to the canal. I passed a guidewire down to the knee and confirmed appropriate positioning fluoroscopically. I reamed with an 11.5 mm Reamer. ?The InterTAN nail was introduced and passed down to an appropriate depth where the interlocking screws would aim towards the center of the femur on an AP view. ?On a lateral fluoroscopic view the rotation of the C-arm was adjusted until the nail was centered in the femoral head. ?The jig was then rotated so that it would line with the nail and the femoral head in order to set the rotation of the nail. ?A guidewire was passed and evaluated to ensure appropriate center center position on both the AP and lateral fluoroscopic images to minimize tip apex distance. ?Once satisfied with the guidewire position I used the drills for the lag and compression screws for the InterTAN nail and measured the length of those. ?The compression screw utilized was 5 mm shorter than the lag screw. ?These were both inserted and correct positioning was verified fluoroscopically. ?I obtained fluoroscopic imaging during tightening of the lower screw indicating that it achieved additional compression across the fracture site. ?The threaded capsular was removed proximally. There was a separate subtrochanteric fracture fragment from the intertrochanteric fracture fragment. I therefore extended the incision from the proximal screws and incised through the ITB band. I gained access to the femoral shaft just below the lesser trochanter and placed Hohmann retractors around the femur. I passed a cable Passer around the femur. I put a [employer] Evos cable through this. I tensioned the cable and confirmed improved alignment of the subtrochanteric fracture. I moved distally and obtained perfect circles on the lateral radiograph at the knee. I drilled through the nail for an interlock and measured it. I placed the screw. Final fluoroscopic images were obtained evaluating fracture reduction and implant positioning on AP and lateral views throughout the entire construct. ?I was satisfied with these radiographs. The wound was copiously irrigated. ?Local anesthesia was infiltrated throughout the wound. ?The wound was closed and a soft dressing was applied. ?The patient was transferred off of the [place] table and brought to the PACU. Postoperative plan: * Weightbearing as tolerated * Aspirin 81 mg twice per day for DVT prophylaxis * Recommend multimodal pain regimen * Physical therapy to evaluate patient mobility, home set up, and availability of assistance at home to determine appropriateness for discharge home versus subacute rehab * Follow up in 2 weeks with a physician assistant track coach at [facility] for staple removal
--- NOTE | 2024-03-06 19:25 | PC.NURSE ---
Patient arrived from PACU at 1857, A&Ox3, VSS, afebrile on 4 LNC. Admission assessment completed, supportive at bedside. SCD's in place, IVF NS at 100 ml/hr. Dressing to R hip with shadow drainage, Vega in place. Patient requesting not to be moved at this time and reporting severe pain with movement.
[2024-03-06] MEDS: ASPIRIN EC 81 MG TABLET PO (21:13)
[2024-03-06] MEDS: DOCUSATE 100 MG CAPSULE PO (21:13)
[2024-03-06] MEDS: SENNOSIDES 8.6 MG TABLET 17.2 MG PO (21:13)
--- NOTE | 2024-03-06 21:56 | PC.NURSE ---
Patient is alert and oriented. Breath sounds CTA and is on oxygen at 4L/min per NC with sat of 97% so decreased to 3L/min but sat dropped down to 88-91% so back on 4L. HRR. Denies nausea. BT present and states she has passed a little flatus since return from surgery. Indwelling catheter is patent; urine is clear, luis fernando. Dressings to lateral right hip are intact but nearly saturated with serosanguinous drainage. Dressing to lateral right leg above knee is CDI. Discussed drainage with coordinator, Lolly, and Lovenox held tonight. Has been complaining of 8-10/10 pain in right hip and has already been medicated twice with Fentanyl and ice applied to hip. Repositioned onto left hip but hollers out with any movement. CMS is intact although feet are cold to touch. Wearing bilateral calf SCD's. Fall risk score is high and bed alarm is activated.
[2024-03-07] MEDS: SODIUM CHLORIDE 0.9% 1,000 ML 100 ML IV (00:27)
[2024-03-07] MEDS: HYDROMORPHONE 2 MG TABLET PO ×3 (00:30→23:17)
[2024-03-07 00:32] VITALS: BP 119/74; PULSE 99; RESP 20; TEMP 36.2; O2SAT 98
[2024-03-07] MEDS: fentaNYL 100 MCG/2 ML INJ 25 MCG IV ×3 (01:47→08:59)
[2024-03-07] MEDS: diphenhydrAMINE 50 MG/ML VIAL IV (02:50)
[2024-03-07 04:00] VITALS: BP 136/77; PULSE 91; RESP 16; TEMP 36.3; O2SAT 95
[2024-03-07] MEDS: HYDROMORPHONE 1 MG INJ IV ×6 (05:31→20:52)
[2024-03-07 06:49] LABS: Add Manual Diff / Slide Review NO; Basophils Absolute Auto 0 /uL (0-100); Basophils Percent Auto 0.1 % (0-2); Eosinophils Absolute Auto 0 /uL (0-450); Hematocrit 31.7 % (36-46); Hemoglobin 10.6 g/dL (12.0-16.0); Lymphocytes Absolute Auto 1000 /uL (1100-4500); Lymphocytes Percent Auto 6.4 % (25-40); Mean Corpuscular HGB Conc 33.5 % (30-36); Mean Corpuscular Hemoglobin 31.8 PG (26-34); Mean Corpuscular Volume 95.1 fL (80-100); Monocytes Absolute Auto 1100 /uL (0-900); Monocytes Percent Auto 6.8 % (3-14); Neutrophils Absolute Auto 13400 /uL (1500-7000); Neutrophils Percent Auto 86.7 % (50-75); Platelet Count 262 X10^3/uL (150-400); Red Blood Cell Count 3.33 X10^6/uL (4.0-5.2); Red Cell Distribution Width 13.6 % (11.6-14.8); White Blood Cell Count 15.5 X10^3/uL (4.5-11.0)
[2024-03-07 07:14] LABS: BUN Creatinine Ratio 22.6 (6-22); Blood Urea Nitrogen 12 mg/dL (7-17); Calcium 7.9 mg/dL (8.4-10.2); Carbon Dioxide 24 mmol/L (22-32); Chloride 109 mmol/L (98-107); Estimated Glomerular Filt Rate > 60 mL/min (>60); Glucose 132 mg/dL (80-110); HEMOLYSIS < 15 (0-50); Potassium 3.8 mmol/L (3.4-5.1); Sodium 137 mmol/L (137-145)
--- NOTE | 2024-03-07 07:27 | PM.PN.1 ---
Subjective Subjective Interval history: She still still having uncontrolled pain rated at 8/10 as well as muscle spasm. She denies any shortness a breath. She has serosanguineous drainage into her dressing. She has an ice pack on her dressing. Exam Vital Signs (past 8 hours): - 03/07/24 00:32 03/07/24 04:00 Temperature 97.2 F L 97.4 F L Pulse Rate 99 H 91 H Respiratory Rate 20 16 Blood Pressure 119/74 136/77 Pulse Oximetry 98 95 Oxygen Flow Rate 4 4 Oxygen Delivery Method Nasal Cannula Oxygen Flow Rate 4 Narrative Exam Narrative: NAD, alert and oriented. Fluent speech. Lungs are clear, normal rate and effort. Heart is regular, no murmur gallop or rub. Abdomen is soft, non distended. Extremities are free of edema. Serosanguineous drainage into the dressing. Objective Labs 03/07/24 06:40 03/07/24 06:40 Labs: Laboratory Results - last 24 hr 03/06/24 03/07/24 12:55 06:40 WBC 12.6 H 15.5 H RBC 4.37 3.33 L Hgb 13.7 10.6 L Hct 41.1 31.7 L MCV 94.0 95.1 MCH 31.4 31.8 MCHC 33.4 33.5 RDW 13.3 13.6 Plt Count 275 262 Neut % (Auto) 81.4 H 86.7 H Lymph % (Auto) 12.1 L 6.4 L [place] % (Auto) 5.4 6.8 Eos % (Auto) 0.7 L 0.0 L Baso % (Auto) 0.4 0.1 Neut # (Auto) 28521 H 11039 H Lymph # (Auto) 1500 1000 L [place] # (Auto) 700 1100 H Eos # (Auto) 100 0 Baso # (Auto) 100 0 Sodium 140 137 Potassium 3.6 3.8 Chloride 109 H 109 H Carbon Dioxide 26 24 BUN 14 12 Creatinine 0.53 0.53 Estimated GFR > 60 > 60 BUN/Creatinine Ratio 26.4 H 22.6 H Glucose 116 H 132 H Calcium 9.1 7.9 L PFSH Medical History Anxiety Cervical spine disease Chronic back pain Fibromyalgia (2006) Lumbar disc disease Foot pain (2013) Fractures Restless leg syndrome (2011) Anxiety Eczema (1949) Chickenpox Mumps Measles Retinal detachment Colon polyps (2013) Cardiac arrhythmia Restless legs syndrome (09/25/16) Osteoarthritis of spine with radiculopathy, 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 Social History household members: spouse Smoking Status: Former smoker alcohol intake: current Assessment & Plan Assessment & Plan narrative: 1. Right Hip Fracture, present on admission and active. S/P ORIF 03/06. 2. RLS, present on admission and active. 3. Fibromyalgia, present on admission and active. PLAN: -DVT prophylaxis. -we will increase Dilaudid to Q 2 hours as needed IV, oxycodone 10 mg Q 3 as needed will be added, cyclobenzaprine 10 t.i.d. will be added. -antianxiety and antispasm affect with Ativan. -PT/OT and Dsicharge planning. She is full resuscitation. She was accompanied by her proxy decision maker, her . Quality VTE Deep Vein Thrombosis/Pulmonary Embolism Present on Admission: No
[2024-03-07] MEDS: ASPIRIN EC 81 MG TABLET PO ×2 (07:49→20:51)
[2024-03-07] MEDS: DOCUSATE 100 MG CAPSULE PO ×2 (07:49→20:51)
[2024-03-07] MEDS: CEFAZOLIN 2 GM/100 ML PREMIX 100 ML IV (07:50)
[2024-03-07 08:00] VITALS: BP 138/75; PULSE 86; RESP 16; TEMP 37.3; O2SAT 95
[2024-03-07] MEDS: polyethylene glycoL 3350 17 GM POWD.PACK PO (08:59)
--- NOTE | 2024-03-07 10:18 | PM.PNPO.1 ---
Subjective Subjective Interval history: Priscila is a 78 year old female who is POD#1 s/p an Open reduction internal fixation of subtrochanteric right femur fracture with cerclage cable placement with an intramedullary nailing of right intertrochanteric femur fracture by Dr. Naqvi. Today she complains of very poorly controlled pain, has not participated in PT d/t inability to move d/t severe pain. Has urinary catheter in place. She is being given Hydromorphone, Oxycodone and Flexeril for pain control currently. She did have Morphine and Fentanyl ordered as well but this has since been discontinued. She does take chronic pain medication Oxycodone 7.5mg BID-TID for back pain. She has a pmhx of Fibromyalgia, RLS, degenerative disc disease. Patient lives at home with , they do not have steps into the house and most of their living space is on one level so she feels comfortable d/c to home with once she is able to get better pain control and mobility. Denies chills, fever, chest pain, SOB, nausea, vomiting. Exam Vital Signs (past 8 hours): - 03/07/24 04:00 Temperature 97.4 F L Pulse Rate 91 H Respiratory Rate 16 Blood Pressure 136/77 Pulse Oximetry 95 Oxygen Flow Rate 4 Oxygen Delivery Method Nasal Cannula Oxygen Flow Rate 4 Narrative Exam Narrative: Lying in bed uncomfortably during our interview today. at bedise. Resp Effort & Inspection: normal respiratory effort and able to speak in complete sentences Cardio Rate: regular rate Other: Extremities appear well perfused, brisk capillary refill. Extrem Other: Completely saturated gauze dressing in place with serosangious drainage on the right lateral thigh. Calf soft and nontender bilaterally. SCDs in place and functioning. 1/5 strength with R DF, PF, EHL, limited by pain. Can wiggle all toes. Gross sensation intact throughout bilateral lower extremities. Objective Labs 03/07/24 06:40 03/07/24 06:40 Labs: Laboratory Results - last 24 hr 03/06/24 03/07/24 12:55 06:40 WBC 12.6 H 15.5 H RBC 4.37 3.33 L Hgb 13.7 10.6 L Hct 41.1 31.7 L MCV 94.0 95.1 MCH 31.4 31.8 MCHC 33.4 33.5 RDW 13.3 13.6 Plt Count 275 262 Neut % (Auto) 81.4 H 86.7 H Lymph % (Auto) 12.1 L 6.4 L [place] % (Auto) 5.4 6.8 Eos % (Auto) 0.7 L 0.0 L Baso % (Auto) 0.4 0.1 Neut # (Auto) 18616 H 99492 H Lymph # (Auto) 1500 1000 L [place] # (Auto) 700 1100 H Eos # (Auto) 100 0 Baso # (Auto) 100 0 Sodium 140 137 Potassium 3.6 3.8 Chloride 109 H 109 H Carbon Dioxide 26 24 BUN 14 12 Creatinine 0.53 0.53 Estimated GFR > 60 > 60 BUN/Creatinine Ratio 26.4 H 22.6 H Glucose 116 H 132 H Calcium 9.1 7.9 L PFSH Medical History Anxiety Cervical spine disease Chronic back pain Fibromyalgia (2005) Lumbar disc disease Foot pain (2013) Fractures Restless leg syndrome (2011) Anxiety Eczema (1949) Chickenpox Mumps Measles Retinal detachment Colon polyps (2013) Cardiac arrhythmia Restless legs syndrome (09/25/16) Osteoarthritis of spine with radiculopathy, 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 Social History household members: spouse Smoking Status: Former smoker alcohol intake: current Assessment & Plan Post-op Postoperative Procedures: Procedures Operation Date: 03/06/24 16:00 Actual Procedure Side Surgeon p Intramedullary Nailing Femur Right Cuco Naqvi MD Postoperative plan narrative: 1) Likely discharge to home with in the next 1-2 days pending improved pain control and mobility. 2) Continue multimodal pain management with ice to the hip for additional pain control. 3) ASA b.i.d. for DVT prophylaxis. Also on Heparin 5,000mg BID, will likely be able to discontinue this at discharge and send home on ASA only. 4) Goal is to be able to work w/ inpatient PT tomorrow. Start outpatient physical therapy to work on range of motion and mobility once d/c from hospital (may need referral to home health PT initially). Weight bearing as tolerated. 5) Will change patients surgical dressing today and monitor for any continued bleeding. 5) Follow up at [facility] in 2 weeks for a postop appointment and wound check. Quality VTE Deep Vein Thrombosis/Pulmonary Embolism Present on Admission: No
[2024-03-07] MEDS: CYCLOBENZAPRINE 10 MG TABLET PO ×2 (10:29→19:27)
[2024-03-07] MEDS: OXYCODONE IR 5 MG TABLET 10 MG PO ×3 (10:29→19:27)
[2024-03-07] MEDS: HEPARIN 5,000 UNIT/ML VIAL 5000 UNIT SUBCUT ×2 (10:33→20:51)
[2024-03-07] MEDS: LORazepam 2 MG/ML INJ 1 MG IV ×2 (11:10→17:52)
[2024-03-07 12:00] VITALS: BP 119/67; PULSE 91; RESP 16; TEMP 37.3; O2SAT 94
--- NOTE | 2024-03-07 12:14 | CM.DANOTE ---
Initial DCP Assessment Visit Note Reviewed EMR and team rounds for status dates. Met with pt/spouse at bedside to introduce self and role. Pt was found to be very uncomfortable, expressing that her pain has been difficult to manage, she was unable to work with therapies due to pain today. Pt lives independently with her in their own home at baseline. Spouse will transport her home if she doesn't go to a facility at d/c. Payor: [facility] [place] Attending: Dr. Naqvi and Hospitalist Pt is a 78 year-old F who presented to the ED yesterday afternoon via EMS after falling on her R-hip, she was unable to get up or walk afterwards. Hip x-ray in the ED confirmed she incurred a intertrochanteric hip fracture. Ortho was consulted, and she was admitted to the floor for planned surgery. R-hip fixation surgery was completed yesterday late afternoon. DCP will follow and assist with final PT/OT recommendations for d/c disposition. Discharge Planning/Care Management CM Discharge Assessment Start: 03/07/24 11:17 Freq: Status: Active Protocol: Document 03/07/24 11:17 DPL (Rec: 03/07/24 12:14 DPL [id number]) Discharge Planning Assessment Assigned Glass Installer LAKSHMI Chavez Advance Directives? No History Provided By Patient,Significant Other, Medical Record Has Patient been admitted in last 30 No days? Prior Living Arrangements House Household Members spouse Type of transporation used prior to Drives own vehicle admit Independent with ADL's Yes Is patient alert and oriented? Yes Caregiver for Another No Comment Pending PT/OT recommendations. Barriers to Discharge No Discharge Plan Inpatient Rehab Unit Transportation Arrangement spouse Additional Comment Pending PT/OT recommendations, but may need acute rehab. If patient plan is SNF: Has PASSR been No completed? Medicare Choice List Provided No Whiteboard Updated in Patient Room with Yes name and ext. # of Glass Installer Review Status In Process Please Provide Date Initial DC 03/07/24 Assessment Was Performed
--- NOTE | 2024-03-07 13:12 | PT-IP ANOTE ---
PT eval order received and EMR reviewed. checked on pt and pt refused PT. c/o increase pain. educated pt on importance of mobility. spouse in room as well. both understood. informed nurse regarding pt's c/o pain and PT refusal. checked back on pt after ~ 2 hours. checked with nurse Daphnie and stated that she does not want PT to work with pt if pt is asleep. nurse checked on pt and stated to hold PT for the morning. will f/u.
[2024-03-07 16:00] VITALS: BP 117/76; PULSE 94; RESP 16; TEMP 36.6; O2SAT 94
--- NOTE | 2024-03-07 16:01 | PT-IP ANOTE ---
nurse informed PT that pt is ready and has pain meds on board. checked on pt again and pt continues to refuse PT. stated that she has 9-10/10 pain and cannot move. educated pt on importance of mobility again but pt continues to refuse. informed pt that PT will check again tomorrow.
[2024-03-07 20:00] VITALS: BP 128/80; PULSE 94; RESP 18; TEMP 37; O2SAT 93
[2024-03-07] MEDS: SENNOSIDES 8.6 MG TABLET 17.2 MG PO (20:51)
[2024-03-07] MEDS: SODIUM CHLORIDE 0.9% FLUSH 10 ML IV (20:52)
[2024-03-07] MEDS: ZOLPIDEM 5 MG TABLET PO (20:52)
--- NOTE | 2024-03-07 23:28 | PC.NURSE ---
Addendum entered by Eleanor Brady R.N. 03/08/24 06:40: Has had only 200cc of UOP this shift and 450cc po intake. Urine is dark luis fernando. Dr Arguello informed and new orders received. Original Note: Patient is drowsy but oriented. Breath sounds CTA but remains on oxygen via NC; O2 decreased to 2L/min at shift change and is currently at 93%. Placed on continuous oximetry in attempt to monitor sats as is taking a lot of narcotic medications. HRR. Denies nausea; appetite has been poor. BT present and is passing flatus; abdomen is soft but mildly distended. Indwelling catheter in place with clear luis fernando urine. Aquacel + allevyn dressings to lateral upper femur intact with drainage noted. Gauze dressing to lower, lateral femur is CDI. Continues to have significant pain despite use of multimodal pain regimen. Her FLACC score is 5/10 but describes pain always as 8-9/10. Is wearing bilateral calf SCD's. CMS is intact except is unable to lift right leg off bed. She refused PT today but states she has agreed to try tomorrow morning. Educated on importance of moving/turning despite pain and she verbalized understanding. Fall risk score is high and bed alarm is activated.
[2024-03-08] VITALS (8 sets, daily range): BP systolic 118–150; BP diastolic 51–80; PULSE 88–116; RESP 16–20; TEMP 36–38; O2SAT 93–97
[2024-03-08] MEDS: HYDROMORPHONE 1 MG INJ IV (00:24)
[2024-03-08] MEDS: SODIUM CHLORIDE 0.9% FLUSH 10 ML IV ×2 (00:24→20:27)
[2024-03-08] MEDS: OXYCODONE IR 5 MG TABLET 10 MG PO ×3 (00:24→06:37)
[2024-03-08] MEDS: CYCLOBENZAPRINE 10 MG TABLET PO ×2 (06:37→20:43)
[2024-03-08 06:38] LABS: Add Manual Diff / Slide Review NO; Basophils Absolute Auto 0 /uL (0-100); Basophils Percent Auto 0.1 % (0-2); Eosinophils Absolute Auto 0 /uL (0-450); Eosinophils Percent Auto 0.2 % (2-4); Hematocrit 26.7 % (36-46); Hemoglobin 9.3 g/dL (12.0-16.0); Lymphocytes Absolute Auto 1900 /uL (1100-4500); Lymphocytes Percent Auto 17.7 % (25-40); Mean Corpuscular HGB Conc 34.7 % (30-36); Mean Corpuscular Hemoglobin 32.9 PG (26-34); Mean Corpuscular Volume 94.8 fL (80-100); Monocytes Absolute Auto 1200 /uL (0-900); Monocytes Percent Auto 10.9 % (3-14); Neutrophils Absolute Auto 7500 /uL (1500-7000); Neutrophils Percent Auto 71.1 % (50-75); Platelet Count 204 X10^3/uL (150-400); Red Blood Cell Count 2.82 X10^6/uL (4.0-5.2); Red Cell Distribution Width 13.6 % (11.6-14.8); White Blood Cell Count 10.6 X10^3/uL (4.5-11.0)
[2024-03-08 06:54] LABS: BUN Creatinine Ratio 20.8 (6-22); Blood Urea Nitrogen 21 mg/dL (7-17); Calcium 8.3 mg/dL (8.4-10.2); Carbon Dioxide 28 mmol/L (22-32); Chloride 105 mmol/L (98-107); Estimated Glomerular Filt Rate 57 mL/min (>60); Glucose 113 mg/dL (80-110); HEMOLYSIS < 15 (0-50); Potassium 3.7 mmol/L (3.4-5.1); Sodium 135 mmol/L (137-145)
--- NOTE | 2024-03-08 07:09 | PM.PN.1 ---
Subjective Subjective Interval history: Patient was ongoing pain control issues but is overall improving. She denies any dyspnea or chest pain. Exam Vital Signs (past 8 hours): - 03/08/24 00:29 03/08/24 06:16 03/08/24 06:16 Temperature 98.4 F 96.8 F L Pulse Rate 99 H 88 Respiratory Rate 20 16 Blood Pressure 139/76 118/80 Pulse Oximetry 96 96 Oxygen Flow Rate 2 0 2.5 Oxygen Delivery Method Nasal Cannula Oxygen Flow Rate 2.5 Narrative Exam Narrative: NAD, alert and oriented. Fluent speech. Lungs are clear, normal rate and effort. Heart is regular, no murmur gallop or rub. Abdomen is soft, non distended. Extremities are free of edema. Objective Labs 03/08/24 06:00 03/08/24 06:00 Labs: Laboratory Results - last 24 hr 03/07/24 03/08/24 06:40 06:00 WBC 10.6 RBC 2.82 L Hgb 9.3 L Hct 26.7 L MCV 94.8 MCH 32.9 MCHC 34.7 RDW 13.6 Plt Count 204 Neut % (Auto) 71.1 Lymph % (Auto) 17.7 L [place] % (Auto) 10.9 Eos % (Auto) 0.2 L Baso % (Auto) 0.1 Neut # (Auto) 7500 H Lymph # (Auto) 1900 [place] # (Auto) 1200 H Eos # (Auto) 0 Baso # (Auto) 0 Sodium 137 135 L Potassium 3.8 3.7 Chloride 109 H 105 Carbon Dioxide 24 28 BUN 12 21 H Creatinine 0.53 1.01 Estimated GFR > 60 57 L BUN/Creatinine Ratio 22.6 H 20.8 Glucose 132 H 113 H Calcium 7.9 L 8.3 L PFSH Medical History Anxiety Cervical spine disease Chronic back pain Fibromyalgia (2005) Lumbar disc disease Foot pain (2013) Fractures Restless leg syndrome (2011) Anxiety Eczema (1949) Chickenpox Mumps Measles Retinal detachment Colon polyps (2013) Cardiac arrhythmia Restless legs syndrome (09/25/16) Osteoarthritis of spine with radiculopathy, 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 Social History household members: spouse Smoking Status: Former smoker alcohol intake: current Assessment & Plan Assessment & Plan narrative: 1. Right Hip Fracture, present on admission and active. S/P ORIF 03/06. 2. RLS, present on admission and active. 3. Fibromyalgia, present on admission and active. PLAN: -DVT prophylaxis. -Dilaudid to Q 2 hours as needed IV, cyclobenzaprine 10 t.i.d. prn, we will increase oxycodone from 10-15 Q 3 hours and add gabapentin.. -antianxiety and antispasm affect with Ativan. -PT/OT and Dsicharge planning. Anticipate SNF in 1-2 days. Quality VTE Deep Vein Thrombosis/Pulmonary Embolism Present on Admission: No
[2024-03-08] MEDS: LACTATED RINGERS 1,000 ML 100 ML IV ×2 (08:18→18:40)
--- NOTE | 2024-03-08 08:24 | P.PN_ITS ---
Subjective Subjective Interval history: Patient is seen postoperatively. Resting comfortably when I arrived. Very anxious. Nursing staff working diligently to reassured patient and redirect her. No new complaints Exam Vital Signs (past 8 hours): - 03/08/24 00:29 03/08/24 06:16 03/08/24 06:16 Temperature 98.4 F 96.8 F L Pulse Rate 99 H 88 Respiratory Rate 20 16 Blood Pressure 139/76 118/80 Pulse Oximetry 96 96 Oxygen Flow Rate 2 0 2.5 Oxygen Delivery Method Nasal Cannula Oxygen Flow Rate 2.5 Narrative Exam Narrative: Right lower extremity: Dressing clean dry and intact. Flexes and extends hallux and ankle. Range of motion of hip deferred due to patient discomfort Objective Imaging Right femur x-ray: My impression: Right femur radiographs demonstrate intramedullary nailing intertrochanteric femur with cerclage cables for fixation of subtrochanteric fracture extension. Appropriate reduction. Labs 03/08/24 06:00 03/08/24 06:00 Labs: Laboratory Results - last 24 hr 03/08/24 06:00 WBC 10.6 RBC 2.82 L Hgb 9.3 L Hct 26.7 L MCV 94.8 MCH 32.9 MCHC 34.7 RDW 13.6 Plt Count 204 Neut % (Auto) 71.1 Lymph % (Auto) 17.7 L Buchanan % (Auto) 10.9 Eos % (Auto) 0.2 L Baso % (Auto) 0.1 Neut # (Auto) 7500 H Lymph # (Auto) 1900 Buchanan # (Auto) 1200 H Eos # (Auto) 0 Baso # (Auto) 0 Sodium 135 L Potassium 3.7 Chloride 105 Carbon Dioxide 28 BUN 21 H Creatinine 1.01 Estimated GFR 57 L BUN/Creatinine Ratio 20.8 Glucose 113 H Calcium 8.3 L PFSH Medical History Anxiety Cervical spine disease Chronic back pain Fibromyalgia (2005) Lumbar disc disease Foot pain (2013) Fractures Restless leg syndrome (2011) Anxiety Eczema (1949) Chickenpox Mumps Measles Retinal detachment Colon polyps (2013) Cardiac arrhythmia Restless legs syndrome (09/25/16) Osteoarthritis of spine with radiculopathy, 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 Social History household members: spouse Smoking Status: Former smoker alcohol intake: current Assessment & Plan Assessment and plan (1) Intertrochanteric fracture of right hip: Status: Acute Plan 1. Weightbearing as tolerated 2. Change dressing on right hip as needed. Patient had open reduction of subtrochanteric fracture and can be anticipated to have more bleeding than normal 3. Anticipate discharge to [facility] facility given patient's pain control difficulties due to her preoperative chronic opioid usage as well as anxiety disorder and fibromyalgia 4. Follow up 2 weeks postoperatively at [facility] orthopedics with a physician prosthetic assistant for staple removal Quality VTE Deep Vein Thrombosis/Pulmonary Embolism Present on Admission: No
[2024-03-08] MEDS: polyethylene glycoL 3350 17 GM POWD.PACK PO (09:31)
[2024-03-08] MEDS: HEPARIN 5,000 UNIT/ML VIAL 5000 UNIT SUBCUT ×2 (09:31→20:26)
[2024-03-08] MEDS: DOCUSATE 100 MG CAPSULE PO ×2 (09:31→20:26)
[2024-03-08] MEDS: ASPIRIN EC 81 MG TABLET PO ×2 (09:31→20:26)
[2024-03-08] MEDS: OXYCODONE IR 5 MG TABLET 15 MG PO ×2 (09:32→13:27)
[2024-03-08] MEDS: GABAPENTIN 100 MG CAPSULE PO ×3 (09:32→20:26)
--- NOTE | 2024-03-08 11:14 | PT.IIE ---
Current Diagnoses Displaced intertrochanteric fracture of right femur, initial encounter for closed fracture (03/06/24) Surgery Performed Operation Date: 03/06/24 16:00 Actual Procedures p Intramedullary Nailing Femur(Right) - Cuco Naqvi MD Surgical History (Last Reviewed 03/06/24 @ 13:13 by Atul Walker MD) Hx of cholecystectomy Hx of detached retina repair (2013) Hx of foot surgery Status post hysterectomy (1972) Medical History (Last Reviewed 03/06/24 @ 13:13 by Atul Walker MD) Anxiety Anxiety Cardiac arrhythmia Cervical spine disease Chickenpox Chronic back pain Chronic pain syndrome (09/25/16) Colon polyps (2013) Eczema (1949) Fibromyalgia (09/25/16) Fibromyalgia (2005) Foot pain (2013) Fractures History of chronic back pain Lumbar disc disease Measles Mumps Osteoarthritis of spine with radiculopathy, 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) Restless leg syndrome (2011) Restless legs syndrome (09/25/16) Retinal detachment Spinal stenosis of cervical region (09/25/16) Physical Therapy Inpatient Evaluation/Re-Eval M1 PT/OT-IP Prior Functional Status Start: 03/08/24 09:22 Freq: NEEDED Status: Active Protocol: Document 03/08/24 10:14 MB (Rec: 03/08/24 11:14 MB [id number]) Medical Review Prior Functional Status Medical History Reviewed Yes Diet/Fluid Consistency Regular Communication WNLs Mobility and Gait Pt reports I Activities of Daily Living and IADL's Pt reports I and no AD Social History Household Members spouse Living Arrangements House Number of Floors (Floors) One Floor Number of Stairs To Enter/Railing? 1 platform step to enter Home Environment Standard Height Toilet,Walk in Shower,Built-In Shower Seat Home Equipment Hand Held Shower Employment Status Retired M2 PT-IP Current Condition Start: 03/08/24 09:22 Freq: NEEDED Status: Active Protocol: Document 03/08/24 10:14 MB (Rec: 03/08/24 11:14 MB [id number]) Physical Therapy Current Condition Current Condition Evaluation Date 03/08/24 Treatment Diagnosis Fall, right hip fracture s/p intramedullary nailing M3 PT-IP Subjective Start: 03/08/24 09:22 Freq: NEEDED Status: Active Protocol: Document 03/08/24 10:14 MB (Rec: 03/08/24 11:14 MB [id number]) Subjective Physical Therapy Visit Type Type Initial Evaluation Visit Start Time 10:14 Visit Stop Time 11:00 Number of TOLL BRIDGE OPERATOR Visits 0 Physical Therapy Visit Comments Patient Comments Pt and verbalize many times that pt's pain is high and she has been very worried and anxious about mobility and getting up with PT Therapy Pain Assessment Pain When Pain Assessed At Rest Pain Present Pain Present Pain Reported Location Right Hip Intensity 8 Scale Used Numeric (0 - 10) Description Acute,With Movement Pain Behaviors Calling Out,Facial Grimacing, Guarding,Holding Area Pain Management Techniques Distraction,Modification of Treatment,Re-positioning, Timing of Activity with Medications M4 PT-IP Mobility and Gait Start: 03/08/24 09:22 Freq: NEEDED Status: Active Protocol: Document 03/08/24 10:14 MB (Rec: 03/08/24 11:14 MB [id number]) PT-Bed Mobility Assessment Supine to Sit Supine to Sit Maximum Assistance,1 Person Assistance,Head of Bed Elevated,Bedrails Sit to Supine Sit to Supine Total Assistance,2 Person Assistance Scooting Scooting to Edge of Bed Maximum Assistance PT-Transfer Assessment Sit to and From Stand Sit to and from Stand Maximum Assistance,1 Person Assistance,Use of Upper Extremities Equipment Transfer Assistive Device Gait Belt,Front Wheeled Walker Orthotic/Prosthetic Devices or Brace: No Comments Mobility Comments Pt requires increased time and encouragement to participate with PT and is not very supportive of pt's mobility and tends to step in and interrupt treatment. They both appear anxious about pt's high reports of pain and mobility and have low insight to benefits of mobility. May benefit from asking him to step out for future mobility efforts. O2 sats on 2L remain in the low to mid 90s and when O2 is doffed, O2 sats drop to 87%. BP and HR in LUE are high at 152/84, 97 hook lying and 161/73, 114 in sitting. PT places gait belt around pt's right foot to help her scoot right foot to the right to the EOB and pt has trouble initiating any self-movement after 10' of trying despite PT cues to bend left knee and push through left foot to move hips and to reach for right rail. PT must use pad to get pt to sitting and to EOB and PT also lifts pt's shoulders. Max to total assist of one person. Max A to stand and pt does not extend through either leg, hips or put weight through right foot. +2 total assist to get back to bed and to scoot up to HOB. PT-Balance Assessment Sitting Balance and Reactions Static Sitting Balance Ability Poor Dynamic Sitting Balance Ability Poor Standing Balance and Reactions Static Standing Balance Ability Poor Dynamic Standing Balance Ability Poor Device Used RW M5 PT-IP Objective Assessments Start: 03/08/24 09:22 Freq: NEEDED Status: Active Protocol: Document 03/08/24 10:14 MB (Rec: 03/08/24 11:14 MB [id number]) Orientation Orientation/Cognition Level of Alertness Confusional State Orientation Name Language Function Ability No Deficits Noted Safety Awareness Decreased Safety Awareness Memory Description No Deficits Noted Comments Pt does not answer all orientation questions Gross Range of Motion Upper Extremity ROM Impairments Defer to OT and grossly functional Lower Extremity ROM Assessment Right Impaired Impairments Little movement of any joint right LE, pt with high reports of pain and apprehension and not following PT's cues, little to no effort to move right LE joints Strength Lower Extremity Strength Assessment Right Impaired Comments Strength Comments See ROM comments above M6 PT-IP Treatment Start: 03/08/24 09:22 Freq: NEEDED Status: Active Protocol: Document 03/08/24 10:14 MB (Rec: 03/08/24 11:14 MB [id number]) Physical Therapy Treatment Exercises Exercises Ankle Pumps Education Education Provided Weight Bearing Status,Safety Other Treatments Other Treatment Performed Extensive ed to pt and about importance of mobility, B LE ROM in the bed M7 PT-IP Assessment and Plan Start: 03/08/24 09:22 Freq: NEEDED Status: Active Protocol: Document 03/08/24 10:14 MB (Rec: 03/08/24 11:14 MB [id number]) PT Summary Assessment and Plan Potential Rehabilitation Potential Fair Status of Condition at Evaluation Evolving Summary Impairments Pain,ROM,Strength,Balance, Coordination,Cognition,Bed Mobility,Transfers,Gait, Activity Tolerance Progress Towards Goals Slow Progress due to Pain Assessment Summary Pt is a 78 y/o female who reports that she was I prior to fall and right hip fracture . Pain medication received appropriately close to evaluation efforts to prepare for mobility. Pt requires increased time and encouragement to participate with PT and is not very supportive of pt's mobility and tends to step in and interrupt treatment. They both appear anxious about pt's high reports of pain and mobility and have low insight to benefits of mobility. May benefit from asking him to step out for future mobility efforts. Pt requires over 45' to get to the EOB and requires max to total assist of one to two people for bed mobility and does not respond to cues and education for self- mobility and does not move right ankle or limb much at all. Max A to attempt standing with RW and she does not WB through right foot or extend through hips and returned to hooklying. Recommend OT consult and SNF at d/c. Recommend OOB to chair with total lift and nsg to mobilize pt, to improve skin care, reduce respiratory and vascular complications and to improve BP. Pain and anxiety and decreased insight and command-following are barriers to participating with PT and PT in general. Goals Bed Mobility Goal Standby Assistance Transfer Goal Standby Assistance,Front Wheeled Walker Gait Goal Standby Assistance,Front Wheel Walker Gait Distance 75 Other Goals Pt will ascend and descend 1 step with LRAD and RW to allow safe home entry. Days to Meet Goals 5 Frequency of Treatment Frequency Of Treatment Once a Day Treatment Plan Physical Therapy Treatment Plan Bed Mobility Training,Transfer Training,Gait Training, Therapeutic Exercise,Balance Retraining,Post Op Education, Discharge Planning,Hot or Cold Pack,Neuromuscular Re-ed, Coordination Retraining,Manual Therapy Other Recommendations and Next Treatment Increase frequency if Focus participation improves Weight Bearing Status Weight Bearing Status Weight Bear as Tolerated Recommendations To Nursing Amount of Assist Needed Mechanical Lift Discharge Recommendations PT Discharge Recommendations SNF Rehab Transportation Needs at Discharge Wheelchair/Cabulance
--- NOTE | 2024-03-08 12:50 | PC.NURSE ---
Pt a&o, concerned about pain issues, seeing PT, issue with fibromyalgia, back pain making Pt's comfort level an issue. PT did attempt to have here stand and did other exercises. Expressed to Pt and her that she accomplished a lot. Pt has been a bit calmer this afternoon after discussion with Dr. Walker and adjustment of meds. See orders.
--- NOTE | 2024-03-08 14:01 | CM.DPC ---
Addendum entered by LAKSHMI Fowler 03/08/24 14:54: ADD: Return msg from [facility] admissions stating they can accept pt and initiated [facility] auth but pt will need to be off IV pain meds to accept at SNF. BF Original Note: DCP SNF vs Home Cont: Per Ortho and MD, pt making progress and maybe better pain management now and strongly encouraging pt to work with PT today for mobility to improve pain and ambulation. Per PT, pt 1 to 2PA with mobility and currently recommending SNF. SW met bedside with pt and spouse and explained role and they deny any hx of SNF but pt states before her mother she had experience with her mother being at SNF. Currently pt and spouse in agreement that SNF will be needed but continue to be hopeful to progress with PT in the next day or two towards plan of home with spouse assist and HH. SW provided the SNF Choice list and highlighted the [facility] contracted SNFs and preference is to stay in [place] and go to [facility]. SW called [facility] admissions April and made new referral and updated on pt status and they will review to see if they can accept and if they could start [facility] auth. PASRR completed but needs Hospitalist signature due to pt's anxiety for exempted hospital discharge and then to fax to PASRR coordinator Gina mckeon for review. Plan: SW to follow closely for [facility] review to determine if they can accept and start auth and to follow for pt progress for home with HH if she improves. LAKSHMI Fowler
[2024-03-08] MEDS: ACETAMINOPHEN 325 MG TABLET 650 MG PO (17:52)
[2024-03-08] MEDS: SENNOSIDES 8.6 MG TABLET 17.2 MG PO (20:27)
[2024-03-08] MEDS: ZOLPIDEM 5 MG TABLET PO (20:42)
[2024-03-09] VITALS (9 sets, daily range): BP systolic 108–123; BP diastolic 60–69; PULSE 72–123; RESP 17–18; TEMP 36.3–38.8; O2SAT 91–95
[2024-03-09] MEDS: ACETAMINOPHEN 325 MG TABLET 650 MG PO (02:37)
[2024-03-09] MEDS: OXYCODONE IR 5 MG TABLET 15 MG PO ×4 (02:37→21:26)
[2024-03-09] MEDS: LACTATED RINGERS 1,000 ML 100 ML IV (05:31)
--- NOTE | 2024-03-09 07:40 | P.PN_ITS ---
Subjective Subjective Interval history: Doing a little bit better. Primarily on oral pain medications. Up in a chair, may need a lift to get back to bed. No difficulties with chest pain or dyspnea. Her was concerned about slurring of her speech but she feels her mouth is dry. No arm or lower extremity weakness. Exam Vital Signs (past 8 hours): - 03/09/24 02:35 03/09/24 02:37 03/09/24 03:40 Temperature 101.8 F H 101.8 F H 99.8 F H Pulse Rate 123 H Respiratory Rate 17 Blood Pressure 118/69 Pulse Oximetry 92 Oxygen Flow Rate 0 03/09/24 04:18 Temperature 99.8 F H Pulse Rate Respiratory Rate Blood Pressure Pulse Oximetry Oxygen Flow Rate Oxygen Delivery Method Room Air Oxygen Flow Rate 0 Narrative Exam Narrative: NAD, alert and oriented. Fluent speech. Lungs are clear, normal rate and effort. Heart is regular, no murmur gallop or rub. Abdomen is soft, non distended. Extremities are free of edema. No clear droop, Symmetric arm strength. Can move both feet normally. 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 Social History household members: spouse Smoking Status: Former smoker alcohol intake: current Assessment & Plan Assessment & Plan narrative: 1. Right Hip Fracture, present on admission and active. S/P ORIF 03/06. 2. RLS, present on admission and active. 3. Fibromyalgia, present on admission and active. PLAN: -continue DVT prophylaxis. -PO pain medications (oxy 15 Q3PRN). Continue gabapentin. -antianxiety and antispasm affect with Ativan. -PT/OT and Discharge planning. Anticipate SNF ([facility]) in 1 days. Quality VTE Deep Vein Thrombosis/Pulmonary Embolism Present on Admission: No
[2024-03-09] MEDS: HYDROMORPHONE 1 MG INJ IV (09:34)
[2024-03-09] MEDS: HEPARIN 5,000 UNIT/ML VIAL 5000 UNIT SUBCUT ×2 (09:50→21:26)
[2024-03-09] MEDS: polyethylene glycoL 3350 17 GM POWD.PACK PO (09:50)
[2024-03-09] MEDS: ASPIRIN EC 81 MG TABLET PO ×2 (09:50→21:26)
[2024-03-09] MEDS: DOCUSATE 100 MG CAPSULE PO ×2 (09:50→21:26)
[2024-03-09] MEDS: GABAPENTIN 100 MG CAPSULE PO ×2 (09:50→21:26)
--- NOTE | 2024-03-09 09:50 | PT.IPTN ---
Current Diagnoses Displaced intertrochanteric fracture of right femur, initial encounter for closed fracture (03/06/24) Surgery Performed Operation Date: 03/06/24 16:00 Actual Procedures p Intramedullary Nailing Femur(Right) - Cuco Naqvi MD Physical Therapy Treatment Note M2 PT-IP Current Condition Start: 03/08/24 09:22 Freq: NEEDED Status: Active Protocol: Document 03/09/24 09:20 SP (Rec: 03/09/24 11:47 SP [id number]) Physical Therapy Current Condition Current Condition Evaluation Date 03/08/24 Treatment Diagnosis Fall, right hip fracture s/p intramedullary nailing M3 PT-IP Subjective Start: 03/08/24 09:22 Freq: NEEDED Status: Active Protocol: Document 03/09/24 09:20 SP (Rec: 03/09/24 11:47 SP [id number]) Subjective Physical Therapy Visit Type Type Treatment Note Visit Start Time 09:20 Visit Stop Time 09:50 Notes Pt goes by Pepper attended tx initally, stepped out during mobility. Vitals: L UE supine BP 112/57 HR 104 SaO2 92 and maintained O2 during mobility on supplimental O2. Number of IV TECHNICIAN Visits 1 Physical Therapy Visit Comments Patient Comments Pt agreeable to PT. reported seems like pt/ slurring speech than remembers . Therapy Pain Assessment Pain When Pain Assessed At Rest Pain Present Pain Present Allowed to Sleep Location Right Hip Intensity 8 Scale Used 8/10 reps, alot more no scale reported with mobility Description Spasm,With Movement Pain Behaviors Calling Out,Facial Grimacing, Moaning,Restlessness,Wincing Pain Management Techniques Distraction,Modification of Treatment,Re-positioning, Timing of Activity with Medications M4 PT-IP Mobility and Gait Start: 03/08/24 09:22 Freq: NEEDED Status: Active Protocol: Document 03/09/24 09:20 SP (Rec: 03/09/24 11:47 SP [id number]) PT-Bed Mobility Assessment Supine to Sit Supine to Sit Maximum Assistance,1 Person Assistance,Head of Bed Elevated,Bedrails Scooting Scooting to Edge of Bed Maximum Assistance PT-Transfer Assessment Sit to and From Stand Sit to and from Stand Maximum Assistance,2 Person Assistance,Use of Upper Extremities Equipment Transfer Assistive Device Gait Belt,Front Wheeled Walker Orthotic/Prosthetic Devices or Brace: No Transfers Transfer Destination Chair Transfer Technique Squat Pivot Transfer Ability Level of Assist Maximum Assistance,2 Person Assistance,Use of Upper Extremities Comments Mobility Comments IV TECHNICIAN instructed LE ex: glut and quad set, with Max A of therapist support during heel slide, hip abd LE to EOB during mobility. Max A x1-2 sup>sit, Max A x2 scoot EOB, sitting min Mod A x1 with max cues for righting trunk R tends to lean L onto LUE, STS attempted x3 with heavy BUE on FWW Max A x2 with inabilityto come to full stand, WB mostly on L. squat pivot transfer to L Heavy Max A x2 with hand over hand BUE positioning and ed maintain stationary there. Max A x2 scoot back in chair via transfer pad. Elevated BLEs in chair and pillow behind back and on L side for trunk righting support, tends lean L unweight R hip. Recommended nurse chair alarm and Olivier back to bed approx no longer than 2 hrs, pt benefit from ice pack to R hip and hip dressing change, over saturated gauze. Recommending SNF. Gait Assessment Comments Gait Comments unable WB into RLE without pain reports, unable come to full stand, squat pivot transfer only. Stair Climbing Assessment Comments Stair Climbing Comments uanble WB into RLE, has 1 PF step enter home when safe to assess. PT-Balance Assessment Sitting Balance and Reactions Static Sitting Balance Ability Poor Dynamic Sitting Balance Ability Poor Standing Balance and Reactions Static Standing Balance Ability Poor Dynamic Standing Balance Ability Poor Device Used RW M5 PT-IP Objective Assessments Start: 03/08/24 09:22 Freq: NEEDED Status: Active Protocol: Document 03/08/24 10:14 MB (Rec: 03/08/24 11:14 MB [id number]) Orientation Orientation/Cognition Level of Alertness Confusional State Orientation Name Language Function Ability No Deficits Noted Safety Awareness Decreased Safety Awareness Memory Description No Deficits Noted Comments Pt does not answer all orientation questions Gross Range of Motion Upper Extremity ROM Impairments Defer to OT and grossly functional Lower Extremity ROM Assessment Right Impaired Impairments Little movement of any joint right LE, pt with high reports of pain and apprehension and not following PT's cues, little to no effort to move right LE joints Strength Lower Extremity Strength Assessment Right Impaired Comments Strength Comments See ROM comments above M6 PT-IP Treatment Start: 03/08/24 09:22 Freq: NEEDED Status: Active Protocol: Document 03/09/24 09:20 SP (Rec: 03/09/24 11:47 SP [id number]) Physical Therapy Treatment Exercises Exercises Ankle Pumps,Gluteal Sets,Quad Sets,Heel Slides Education Education Provided Weight Bearing Status,Safety Other Treatments Other Treatment Performed Extensive ed to pt and about importance of mobility, B LE ROM in the bed M7 PT-IP Assessment and Plan Start: 03/08/24 09:22 Freq: NEEDED Status: Active Protocol: Document 03/09/24 09:20 SP (Rec: 03/09/24 11:47 SP [id number]) PT Summary Assessment and Plan Potential Rehabilitation Potential Fair Status of Condition at Evaluation Evolving Summary Impairments Pain,ROM,Strength,Balance, Coordination,Cognition,Bed Mobility,Transfers,Gait, Activity Tolerance Progress Towards Goals Slow Progress due to Pain Assessment Summary IV TECHNICIAN reported to nursing noted pt little more slurry speech as stated,nursing reported had stronger meds than usual, but not had any since 237 am, updating orders today for control. Pt requires Max 1-2 person bed mobility, Min/Mod A sit balance EOB, tends L trunk lean, Heavy Max A x2 squat pivot L to chair, very unsteady, recommending Olivier for transfers with nursing. Pt recommending SNF for continued skilled rehab for progression strength and mobility. Will continue to assess progress. Goals Bed Mobility Goal Standby Assistance Transfer Goal Standby Assistance,Front Wheeled Walker Gait Goal Standby Assistance,Front Wheel Walker Gait Distance 75 Other Goals Pt will ascend and descend 1 step with LRAD and RW to allow safe home entry. Days to Meet Goals 5 Frequency of Treatment Frequency Of Treatment Once a Day Treatment Plan Physical Therapy Treatment Plan Bed Mobility Training,Transfer Training,Gait Training, Therapeutic Exercise,Balance Retraining,Post Op Education, Discharge Planning,Hot or Cold Pack,Neuromuscular Re-ed, Coordination Retraining,Manual Therapy Other Recommendations and Next Treatment bed mob, transfers, standing Focus increase time WB into RLE with PT. Weight Bearing Status Weight Bearing Status Weight Bear as Tolerated Recommendations To Nursing Amount of Assist Needed Mechanical Lift Discharge Recommendations PT Discharge Recommendations SNF Rehab Transportation Needs at Discharge Wheelchair/Cabulance
--- NOTE | 2024-03-09 11:20 | CM.DPC ---
DCP SNF Planning: [facility] at [facility] MCR auth was obtained through [employer] but requesting pt's IV Dilaudid be cancelled and then they could accept pt tomorrow ideally around 1030. ROSAURA updated who is in agreement to attempt to cancel the IV Dilaudid 1g and switch to orals now. signed PASRR due to anxiety and ROSAURA faxed to PASRR coordinator Gina mckeon to review. PT/OT to continue working with pt today. Plan: ROSAURA to follow closely for plan of discharge to [facility] in the morning 03/10/24 around 1030 if off IV pain meds. LAKSHMI Fowler
--- NOTE | 2024-03-09 12:45 | OT.IP.EVAL ---
Current Diagnoses Displaced intertrochanteric fracture of right femur, initial encounter for closed fracture (03/06/24) Surgery Performed Operation Date: 03/06/24 16:00 Actual Procedures p Intramedullary Nailing Femur(Right) - Cuco Naqvi MD Past Medical History (Last Reviewed 03/06/24 @ 13:13 by Atul Walker MD) Anxiety Anxiety Cardiac arrhythmia Cervical spine disease Chickenpox Chronic back pain Chronic pain syndrome (09/25/16) Colon polyps (2013) Eczema (1949) Fibromyalgia (09/25/16) Fibromyalgia (2005) Foot pain (2013) Fractures History of chronic back pain Lumbar disc disease Measles Mumps Osteoarthritis of spine with radiculopathy, 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) Restless leg syndrome (2011) Restless legs syndrome (09/25/16) Retinal detachment Spinal stenosis of cervical region (09/25/16) Surgical History (Last Reviewed 03/06/24 @ 13:13 by Atul Walker MD) Hx of cholecystectomy Hx of detached retina repair (2013) Hx of foot surgery Status post hysterectomy (1972) Occupational Therapy Inpatient Evaluation/Re-Eval M1 PT/OT-IP Prior Functional Status Start: 03/08/24 09:22 Freq: NEEDED Status: Active Protocol: Document 03/09/24 14:31 CGR (Rec: 03/09/24 14:59 CGR [id number]) Medical Review Prior Functional Status Medical History Reviewed Yes Diet/Fluid Consistency Regular Communication WNLs Mobility and Gait Pt reports I Activities of Daily Living and IADL's Pt reports I and no AD Social History Household Members spouse Living Arrangements House Number of Floors (Floors) One Floor Number of Stairs To Enter/Railing? 1 platform step to enter Home Environment Standard Height Toilet,Walk in Shower,Built-In Shower Seat Home Equipment Straight Cane,Hand Held Shower Employment Status Retired Additional Social History Comment Pt lives with her and has an adjustable bed. M2 OT-IP Current Condition Start: 03/09/24 14:31 Freq: Status: Active Protocol: Document 03/09/24 14:31 CGR (Rec: 03/09/24 14:59 CGR [id number]) Occupational Therapy Current Condition Current Condition Evaluation Date 03/09/24 Treatment Diagnosis Fall with R hip fx, s/p ORIF WBAT Diagnosis Onset Date 03/06/24 M3 OT- IP Subjective and Pain Start: 03/09/24 14:31 Freq: Status: Active Protocol: Document 03/09/24 14:31 CGR (Rec: 03/09/24 14:59 CGR [id number]) OT- Subjective Occupational Therapy Visit Type Type Initial Evaluation Visit Start Time 12:07 Visit Stop Time 12:45 OT Pain Assessment Pain When Pain Assessed At Rest Pain Present Pain Present Pain Reported Location Right Hip Intensity 8 Scale Used Numeric (0 - 10) Management Techniques Modification of Treatment,Re- positioning M4 OT- IP ADL's Start: 03/09/24 14:31 Freq: Status: Active Protocol: Document 03/09/24 14:31 CGR (Rec: 03/09/24 14:59 CGR [id number]) OT [id number] General Evaluation Self-Feeding Ability Independent Comments OT Self-Feeding Comments Pt finishing lunch when OT entered. OT ADL-Grooming General Evaluation Grooming Ability Standby Assistance Areas Needing Assistance Retrieving/Set-up of Grooming Items,Face Washing Comments OT Grooming Comments seated in chair OT ADL-Oral Care General Eval Oral Care Ability Standby Assistance Areas of Assistance Brushing Teeth,Retrieving/Set- Up of Items Comments Oral Care Comments seated in chair, pt attempted to put tooth paste on her tooth brush prior to taking off the cap. 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 M6 OT- IP Functional Cognition Start: 03/09/24 14:31 Freq: Status: Active Protocol: Document 03/09/24 14:31 CGR (Rec: 03/09/24 14:59 CGR [id number]) Cognitive Factors Limiting Selfcare Function Cognitive Ability Level of Alertness Alert Patient Orientation Name,Age,Birthday,Month,Date, Year,Day of Week,Place, Situation Attention Span Ability Capable of Focused Attention, Capable of Sustained Attention Ability to Follow Commands Able to Follow One Step Commands with Increased Time, Able to Follow One Step Commands with Repetition Cognitive Comments Cognitive Assessment Comments Pt needs instructions to be given more than once and with visual cues if able. OT- Vision and Hearing OT- Hearing Assessment OT- Hearing Assessment WFL OT- Vision Assessment Vision History Cataracts Visual Acuity WFL Visual Attentiveness WFL Occular Pursuits WFL Visual Convergence WFL Vision Assessment Comments PT states that she had cateract sx recently. M7 OT- IP Mobility and Balance Start: 03/09/24 14:31 Freq: Status: Active Protocol: Document 03/09/24 14:31 CGR (Rec: 03/09/24 14:59 CGR [id number]) OT-Transfer Assessment Sit to and From Stand Sit to and from Stand Maximum Assistance,Total Assistance,1 Person Assistance Technique Transfer Destination Chair Transfer Technique stand only Devices Transfer Assistive Devices Gait Belt,Front Wheeled Walker Comments Mobility Comments Pt needed multiple attempts to stand with instruction given between each attempt. Pt was finally able to get into standing with max to total assist but unable to take steps. OT- Balance Assessment Sitting Balance and Reactions Static Sitting Balance Ability Good Dynamic Sitting Balance Ability Fair M8 OT- IP Objective Assessments Start: 03/09/24 14:31 Freq: Status: Active Protocol: Document 03/09/24 14:31 CGR (Rec: 03/09/24 14:59 CGR [id number]) OT Gross Range of Motion Upper Extremity Range of Motion Assessment Within Functional Limits OT Strength Upper Extremity Strength Assessment Within Functional Limits Comments Strength Comments B shlds 4-/5, arms and hand 4+ /5 OT- Coordination Assessment Upper Extremity Finger to Nose Test Within Functional Limits Finger Tapping Test Within Functional Limits OT-Muscle Tone Assessment Muscle Tone WNL Yes OT Sensation Assessment Edema Edema Absent M9 OT- IP Assessment and Plan Start: 03/09/24 14:31 Freq: Status: Active Protocol: Document 03/09/24 14:31 CGR (Rec: 03/09/24 14:59 CGR [id number]) OT Summary Assessment and Plan Potential Rehabilitation Potential Good Analytic Complexity at Evaluation High Summary OT Impairments Pain,Strength,Balance, Functional Cognition, Functional Mobility,Grooming, Dressing,Toileting,Bathing, Toilet Transfers,Shower Transfers,Activity Tolerance Progress Towards Goals Slow Progress due to Pain Assessment Summary Pt presents as a high complexity evaluation s/p admit for fall with R hip fx. Pt is now s/p ORIF of the RLE and WBAT. Pt states significant pain reporting 8/ 10 with activity. Pt was able to stand with max x total assist and max vc and visual cues for moter planning the movement. Pt was unable to take steps. Pt returned to sitting and participated in ADLs seated. Pt is oriented but needs max instructions for sit to stand. Pt will continue to benefit from OT services. Recommend d/c to SNF . Goals Grooming Goal Independent Dressing Goal Independent Toileting Goal Independent Bathing Goal Independent Toilet Transfer Goal Independent Shower Transfer Goal Independent Days to Meet Goals 30 Frequency of Treatment Frequency Of Treatment Once a Day Treatment Plan OT Treatment Plan ADL Training,Functional Cognition Training,Functional Mobility,Patient/Family Education,Discharge Planning Other Treatment Recommendations and Next ADLs seated at sink, attempt Treatment Focus sit to stand. Discharge Recommendations OT Discharge Recommendations SNF Rehab Transportation Needs at Discharge Private Vehicle
--- NOTE | 2024-03-09 13:17 | PM.PNPO.1 ---
Subjective Subjective Date Patient Seen: 03/09/24 Time Patient Seen: 13:17 Interval history: Pt resting comfortably in bed, says she has not walked w/ PT since surgery, has only gotten out of bed to chair. C/o poor pain management. She is receiving APAP, oxycodone, cyclobenzaprine PO. Plan per CM and hospitalist service is d/c to SNF. Exam Vital Signs (past 8 hours): - 03/09/24 08:00 03/09/24 12:00 03/09/24 12:53 Temperature 98.5 F 97.6 F Pulse Rate 72 102 H Respiratory Rate 18 18 Blood Pressure 108/60 110/60 Pulse Oximetry 91 95 Oxygen Flow Rate 2 1.5 Oxygen Delivery Method Room Air Oxygen Flow Rate 1.5 Narrative Exam Narrative: 5/5 DF, PF, EHL on right; 3/5 hip flexors, quadriceps, hamstrings. Sensation to light touch intact throughout RLE, calf soft and compressible. Aquacel dressing w/ moderate amount of bloody drainage. Vega w/ clear, blood-tinged urine. Objective Labs 03/08/24 06:00 03/08/24 06:00 [facility] Medical History Anxiety Cervical spine disease Chronic back pain Fibromyalgia (2005) Lumbar disc disease Foot pain (2013) Fractures Restless leg syndrome (2011) Anxiety Eczema (1949) Chickenpox Mumps Measles Retinal detachment Colon polyps (2013) Cardiac arrhythmia Restless legs syndrome (09/25/16) Osteoarthritis of spine with radiculopathy, 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 Social History household members: spouse Smoking Status: Former smoker alcohol intake: current Assessment & Plan Post-op Assessment and plan (1) Intertrochanteric fracture of right hip: Assessment and Plan narrative: POD# 3 s/p IM nailing for intertrochanteric femur fx with cerclage cables for fixation of subtrochanteric fracture extension. Weightbearing as tolerated to right leg. Currently receiving SQ heparin and PO ASA for VTE prophylaxis. Recommend continue ASA 81mg BID x 6 weeks on discharge. H/o chronic opioid use; pain management per hospitalist service, recommend refer back to provider who normally manages her pain meds/benzodiazepines after discharge (Dr Kobe Willson). [id number] discharge expected from incision d/t nature of fracture. Recommend change to a non-occlusive, dry gauze dressing prior to discharge and change as necessary. Postoperative Procedures: Procedures Operation Date: 03/06/24 16:00 Actual Procedure Side Surgeon p Intramedullary Nailing Femur Right Cuco Naqvi MD Postoperative day: 3 Quality VTE Deep Vein Thrombosis/Pulmonary Embolism Present on Admission: No
[2024-03-09] MEDS: SENNOSIDES 8.6 MG TABLET 17.2 MG PO (21:26)
[2024-03-09] MEDS: SODIUM CHLORIDE 0.9% FLUSH 10 ML IV (21:32)
[2024-03-10] VITALS: BP 114/61; PULSE 102; RESP 16; TEMP 36.7; O2SAT 92
[2024-03-10 02:49] VITALS: O2SAT 95
[2024-03-10] MEDS: OXYCODONE IR 5 MG TABLET 15 MG PO ×2 (03:55→08:42)
[2024-03-10 04:00] VITALS: BP 138/65; PULSE 101; RESP 17; TEMP 36.9; O2SAT 96
--- NOTE | 2024-03-10 05:34 | PC.NURSE ---
Pt is alert and oriented. Dressings to lateral right hip saturated with bloody drainage. Dressings removed and replaced with gauze, ABDs, and medipore per MD orders. [place] are intact. Pt tolerated dressing change well.
[2024-03-10 08:00] VITALS: BP 139/65; PULSE 97; RESP 18; TEMP 37.2; O2SAT 91
[2024-03-10 08:42] VITALS: O2SAT 93
[2024-03-10] MEDS: GABAPENTIN 100 MG CAPSULE PO (08:42)
[2024-03-10] MEDS: ASPIRIN EC 81 MG TABLET PO (08:42)
[2024-03-10] MEDS: DOCUSATE 100 MG CAPSULE PO (08:42)
[2024-03-10] MEDS: polyethylene glycoL 3350 17 GM POWD.PACK PO (08:43)
[2024-03-10] MEDS: SODIUM CHLORIDE 0.9% FLUSH 10 ML IV (08:43)
[2024-03-10] MEDS: HEPARIN 5,000 UNIT/ML VIAL 5000 UNIT SUBCUT (08:43)
--- NOTE | 2024-03-10 10:58 | P.DS_ITS ---
History of Present Illness History of Present Illness Chief complaint: GLF, Right Hip Pain Narrative: The patient is a 78-year-old female with right hip pain after a fall. She fell while making her bed. She got stuck in a cord. She denies other injuries. She had no other injuries. She was found to have a hip fracture in the ED on imaging. She denies any other injuries. She did receive fentanyl while in the ambulance EN route which was effective. In the emergency department her pain was poorly controlled with Dilaudid and morphine. He is having leg muscle spasm. She is trying not to move the leg at all. Orthopedics was contacted from the emergency department. The general plan is not known at this point. She will be made NPO now. IV fluids will be started. She does take oxycodone 7.5 mg about 2 tabs a day chronically. Discharge Providers Provider Date of admission: 03/06/24 13:09 Discharge Date: 03/10/24 Primary care physician: Kobe Willson MD Consults: 03/06/24 12:59 Consult to Orthopedic Surgery Stat Comment: Consulting Provider: Cuco Naqvi Reason for consultation: Hip fracture Has provider been notified: Yes 03/06/24 15:38 Consult to Orthopedic Surgery Routine Comment: Consulting Provider: Cuco Naqvi Reason for consultation: Right hip fracture Has provider been notified: Yes 03/06/24 18:57 Consult to Discharge Planning Routine Comment: Consult to Physical Therapy Evaluate & Treat Comment: Physician Instructions: Evaluate and Treat 03/09/24 11:10 Consult to Occupational Therapy Evaluate & Treat Comment: Physician Instructions: Evaluate and treat Discharge provider: Atul Walters MD Summary Hospital Course Discharge Diagnosis: 1. Closed right hip fracture 2. Chronic pain syndrome 3. Chronic opioid dependency 4. Anxiety disorder 5. Insomnia 6. Acute blood loss due to hip fracture Procedure: Intramedullary nailing of right intertrochanteric femur fracture Open reduction internal fixation of subtrochanteric right femur fracture with cerclage cable placement Same procedure as scheduled: Yes Surgeon: Cuco Naqvi Hospital Course: Pt is s/p rt hip ORIF. Post-op pain is being managed with oxycodone. She is chronically on Percocet. She is max assist and being discharged to [facility]. Daniels is left in until she is more ambulatory. She needs to stay on ASA 81 bid for 6 weeks postop for DVT prevention. Status at Discharge Cognitive/behavioral status at discharge: oriented Functional status at discharge: wheelchair bound Overall status at discharge: patient is not back to baseline Time Spent with Patient Time spent: Greater than 30 minutes Exam Vital Signs (past 8 hours): - 03/10/24 04:00 03/10/24 08:00 03/10/24 08:42 Temperature 98.5 F 98.9 F Pulse Rate 101 H 97 H Respiratory Rate 17 18 Blood Pressure 138/65 139/65 Pulse Oximetry 96 91 93 Oxygen Delivery Method Nasal Cannula Oxygen Flow Rate 2 1 0.5 Oxygen Delivery Method Nasal Cannula Oxygen Flow Rate 0.5 Narrative Exam Narrative: Gen: alert, NAD Lungs: clear Ext: dressing clean and dry, no distal edema Objective Labs 03/08/24 06:00 03/08/24 06:00 [facility] Medical History Anxiety Cervical spine disease Chronic back pain Fibromyalgia (2005) Lumbar disc disease Foot pain (2013) Fractures Restless leg syndrome (2011) Anxiety Eczema (1949) Chickenpox Mumps Measles Retinal detachment Colon polyps (2013) Cardiac arrhythmia Restless legs syndrome (09/25/16) Osteoarthritis of spine with radiculopathy, 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 Social History household members: spouse Smoking Status: Former smoker alcohol intake: current Discharge Plan Discharge Plan Transfer to: [facility] Consult as needed: Dental, Hearing, Mental health, Podiatry and Vision Provider Discharge Comment: s/p rt ORIF Discharge orders & Medications Discharge Orders: Discharge (Order); Ordered 03/10/24 Ordered By: Atul Walters Prescriptions: New aspirin 81 mg Tablet,Delayed Release (Dr/Ec) 81 mg PO BID 42 Days Qty: 84 0RF acetaminophen 325 mg Tablet 650 mg PO Q6H PRN (Reason: Fever/Mild Pain (1-3)) Qty: 1 0RF cyclobenzaprine 10 mg Tablet 10 mg PO Q8HR PRN (Reason: Spasms) Qty: 30 0RF docusate sodium 100 mg Capsule 100 mg PO BID Qty: 60 0RF polyethylene glycol 3350 17 gram Powder In Packet 17 g PO DAILY Qty: 30 0RF gabapentin 100 mg Capsule 100 mg PO TID Qty: 90 0RF oxycodone 5 mg Tablet 15 mg PO Q4H PRN (Reason: Pain, Severe (7-10)) Qty: 100 0RF sennosides [senna] 8.6 mg Tablet 17.2 mg PO BEDTIME Qty: 60 0RF Continued escitalopram oxalate 20 mg tablet 20 mg PO DAILY lorazepam 0.5 mg tablet 0.5 mg PO BID PRN (Reason: anxiety) Qty: 30 0RF zolpidem 10 mg tablet 10 mg PO ONCE PM PRN (Reason: Sleep) Qty: 15 0RF Discontinued oxycodone-acetaminophen 7.5-325 mg tablet 1 tab PO Q8H PRN (Reason: pain) Follow up/Referrals: Kobe Willson MD [Primary Care Provider] - Cuco Naqvi MD [Physician] - 2 Weeks (Follow up w/ PA at [facility] in 2 weeks for staple removal, wound check. Follow up w/ Dr Naqvi in 6 weeks for repeat imaging.) Discharge Health Status Multidrug resistant organism: No MDRO Diet/Activity/Treatments Diet: Regular Liquid consistency: Normal/Thin Food texture: Regular Activity: Weightbearing as tolerated to right leg. Catheter: 2-way Daniels Catheter comment: Remove daniels when pt more ambulatory Skin/Wound/Dressing Care Dressing: Replace dressing with clean, dry gauze as needed. Drainage is to be expected. Ok to get incision wet in the shower; pat dry immediately afterwards. No bathing or otherwise soaking incision. Do not apply any creams, lotions, or ointments to incision. Special Rehabilitation Services Reason for rehabilitation: Post-operative therapy Rehab type: Physical therapy and Occupational therapy Visit Report/Discharge Packet Stand Alone Forms: Patient Portal/API Discharge Data Primary Care Provider: Kobe Willson VTE Deep Vein Thrombosis/Pulmonary Embolism Present on Admission: No
--- NOTE | 2024-03-10 11:10 | CM.DPC ---
DCP Discharge SNF Per MD, pt managed off IV pain meds since yesterday morning and medically stable to d/c to SNF. ROSAURA called [facility] and confirmed they can still accept today and now confirm transport available for 1145 transport. SW met bedside with pt and spouse and updated and they remain agreeable with discharge to [facility] today. Pt has some concerns with d/c via wheelchair due to pain but confirms she was sitting in bedside chair for the most part of yesterday. Pt inquired about non-emergency ambulance and SW explained cannot guarantee that insurance will fully cover the cost and could be an out of pocket expense and then pt and spouse discussed and determined short distance to SNF and feel that wheelchair transport will be fine and RN will medicate prior to discharge. [employer]ING [employer] agreeable to assist with transfer to wheelchair if needed. ROSAURA updated SAT INSTRUCTOR and RN and DAYANNA Ladd kindly faxed [facility], signed med list, scripts, and orders to [facility] to review and provided RN report number to RN. Plan: Patient to discharge to [facility] today via facility van at 1145 before safe return home with spouse. LAKSHMI Fowler
--- NOTE | 2024-03-10 11:33 | PC.NURSE ---
Pt is packed up and ready for discharge to [facility]. IV has been removed. Vega to stay in place until Pt is able to mobilize better. Report called to Olga Lidia LUNDBERG at [facility] and all questions were answered.
--- NOTE | 2024-03-10 11:52 | PC.NURSE ---
Nurse discharge note: Patient IV removed, placed into sling and hoyered into WC for discharge. Patient left in stable condition, VSS. Vega cath in place. Spouse at bedside gathered belongings and is going to meet patient at facility with belongings. Report was called by primary nurse to facility.
== END 2024-03-10 11:54 | DRG 481 ==
LOC: ED 12:53 → AC 13:10
PROVIDERS: Orthopaedic Surgery Adult Reconstructive Orthopaedic Surgery; Admitting Provider Hospitalist; Emergency Provider Emergency Medicine; Family Provider Family Medicine; PCP Family Medicine; Referring Provider Emergency Medicine; Visit Provider Hospitalist
PROC: 0QS606Z Reposition Right Upper Femur with Intramedullary Internal Fixation Device, Open Approach (ICD-10-PCS; CPT 27245; principal; 2024-03-06 16:00)
DX: S72.141A Displaced intertrochanteric fracture of right femur, initial encounter for closed fracture (principal); D62 Acute posthemorrhagic anemia; F11.20 Opioid dependence, uncomplicated; G25.81 Restless legs syndrome; M79.7 Fibromyalgia; G89.18 Other acute postprocedural pain; G89.4 Chronic pain syndrome; F41.9 Anxiety disorder, unspecified; G47.00 Insomnia, unspecified; W18.30XA Fall on same level, unspecified, initial encounter
CPT/HCPCS: 36415; 73502; 73552; 76000; 80048; 85025; 87040; 94762; 96374; 96375; 97161; 97167; 97530; 97535; 99283; 99284; J0171; J0690; J1100; J1170; J1200; J1644; J2060; J2250; J2270; J2405; J2704; J3010

== ENCOUNTER → 2024-03-23 14:45 | Outpatient (CLI) | payer SELFPAY ==
[2024-03-06 18:57] VITALS: BMI 28.0
--- NOTE | 2024-03-23 14:49 | DI.RAD.S_ITS ---
PROCEDURE: XR HIP W PEL IF DONE RT 2V INDICATIONS: RIGHT HIP PAIN TECHNIQUE: AP pelvis and lateral view of the hip acquired. COMPARISON: [facility], CR, XR HIP W PEL IF DONE RT 2V, 03/06/2024, 16:40. FINDINGS: Bones: Patient is status post right hip pinning and proximal femur cerclage wire. A mildly displaced intertrochanteric right hip fracture is identified. Hardware appears in expected location. Femoroacetabular joint is congruent. No unexpected fractures. Soft tissues: No suspicious soft tissue densities. IMPRESSION: Expected appearance post right hip pinning. Dictated by: Alexandra Barrera M.D. on 03/23/2024 at 17:10 Approved by: Alexandra Barrera M.D. on 03/23/2024 at 17:12
== END ==
PROVIDERS: Family Provider Family Medicine; PCP Family Medicine; Referring Provider Internal Medicine; Visit Provider Internal Medicine
DX: S72.21XD Displaced subtrochanteric fracture of right femur, subsequent encounter for closed fracture with routine healing (principal); M25.551 Pain in right hip; X58.XXXD Exposure to other specified factors, subsequent encounter
CPT/HCPCS: 73502

== ENCOUNTER → 2024-08-11 11:59 | Outpatient (CLI) | payer MEDICARE, SELFPAY ==
[2024-03-06 18:57] VITALS: BMI 28.0
--- NOTE | 2024-08-11 12:00 | DI.RAD.S_ITS ---
PROCEDURE: XR DEXA AXIAL SKELETON INDICATIONS: POST MENOPAUSAL AND HISTORY OF FRACTURE COMPARISON: [facility], CR, XR FEMUR 2+ VIEWS RIGHT, 07/02/2024, 13:41. FINDINGS: Lumbar Spine: Bone mineral density 1.074 g/cm2, T score 0.2 Left Hip: Bone mineral density 0.732 g/cm2, T score -1.7 Right Hip: Prior fracture with intramedullary fixation Fracture Risk Calculation (when applicable): 10-year fracture risk of a major osteoporotic fracture 27 percent and of a hip fracture 17 percent. (T score greater or equal to -1.0 to: NORMAL) (T score from -1.1 to -2.4: OSTEOPENIA) (T score less than or equal to -2.5: OSTEOPOROSIS) IMPRESSION: 1. Normal bone density of the lumbar spine. 2. Osteopenia of the left hip. Follow-up guidelines as follows: Osteoporosis: Consider a repeat DEXA and Vertebral Fracture Assessment (VFA) exam in 2 years or sooner if medically necessary, to reassess this patient's status. Osteopenia: Consider a repeat DEXA in 2-3 years to reassess this patient's status, or if there is a new clinical indication. Normal: Consider a repeat DEXA in 5 years or sooner, or if there is a new clinical indication. All treatment decisions require clinical judgment and consideration of individual patient factors, including patient preferences, comorbidities, previous drug use, risk factors not captured in the FRAX model (e.g., frailty, falls, vitamin D deficiency, increased bone turnover, interval significant decline in bone density ) and possible under- or over-estimation of fracture risk by FRAX. In addition, the NOF Guide recommends that FDA-approved medical therapies be considered in postmenopausal women and men age >= 50 years with a: * Hip or vertebral (clinical or morphometric) fracture * T-score of <=-2.5 at the spine or hip * Ten-year fracture probability by FRAX of >= 3% for hip fracture or >=20% for major osteoporotic fracture. People with diagnosed cases of osteoporosis or at high risk for fracture should have regular bone mineral density tests. For patients eligible for Medicare, routine testing is allowed once every 2 years. The testing frequency can be increased to one year for patients who have rapidly progressing disease, those who are receiving or discontinuing medical therapy to restore bone mass, or have additional risk factors. Dictated by: Adilson Avilez M.D. on 08/11/2024 at 15:46 Approved by: Adilson Avilez M.D. on 08/11/2024 at 15:49
== END ==
LOC: RAD 12:00
PROVIDERS: Family Provider Family Medicine; PCP Family Medicine; Referring Provider Family Medicine; Visit Provider Family Medicine
DX: M85.852 Other specified disorders of bone density and structure, left thigh (principal); Z78.0 Asymptomatic menopausal state; Z87.81 Personal history of (healed) traumatic fracture
CPT/HCPCS: 77080

== ENCOUNTER → 2024-12-20 11:49 | Outpatient (CLI) | payer MEDICARE, SELFPAY ==
[2024-03-06 18:57] VITALS: BMI 28.0
--- NOTE | 2024-12-20 11:53 | DI.MG.S_ITS ---
BILATERAL DIGITAL SCREENING MAMMOGRAM 3D/2D WITH CAD: 12/20/2024 CLINICAL: Routine screening. Family history of breast cancer. Comparison is made to exams dated: 12/10/2023 mammogram, 11/20/2022 mammogram, and 09/26/2021 mammogram - [facility]. The breasts are heterogeneously dense, which may obscure small masses (category c / 51-75% glandular tissue). Current study was also evaluated with a Computer Aided Detection (CAD) system. No significant masses, calcifications, or other findings are seen in either breast. There has been no significant interval change. IMPRESSION: NEGATIVE There is no mammographic evidence of malignancy. A 1 year screening mammogram is recommended. Based on the Tyrer Cuzick model (a risk assessment model) the patient's lifetime risk is 1.6% and her 10 year risk is 0.0%. According to the ACR, ACS, and NCCN guidelines, an annual breast MRI exam along with mammogram is recommended if the patient's lifetime risk is 20% or greater. This exam was interpreted at Station ID: [id number]. NOTE: For mammograms, a report in lay terms will be sent to the patient. Approximately 15% of breast malignancies will not be visualized mammographically. In the management of a palpable breast mass, a negative mammogram must not discourage biopsy of a clinically suspicious lesion. Electronically Signed By: Cabrera pinto/deirdre:12/21/2024 16:08:35 letter sent: Normal Exam ACR BI-RADS Category 1: Negative
== END ==
PROVIDERS: Family Provider Family Medicine; PCP Family Medicine; Referring Provider Family Medicine; Visit Provider Family Medicine
DX: Z12.31 Encounter for screening mammogram for malignant neoplasm of breast (principal); Z80.3 Family history of malignant neoplasm of breast; R92.333 Mammographic heterogeneous density, bilateral breasts
CPT/HCPCS: 77063; 77067

== ENCOUNTER → 2025-03-25 08:51 | Outpatient (CLI) | payer MEDICARE, SELFPAY ==
[2024-03-06 18:57] VITALS: BMI 28.0
[2025-03-25 09:53] LABS: Add Manual Diff / Slide Review NO; Basophils Absolute Auto 100 /uL (0-100); Basophils Percent Auto 0.8 % (0-2); Eosinophils Absolute Auto 200 /uL (0-450); Eosinophils Percent Auto 3.2 % (2-4); Hematocrit 42.2 % (36-46); Hemoglobin 14.4 g/dL (12.0-16.0); Lymphocytes Absolute Auto 1600 /uL (1100-4500); Lymphocytes Percent Auto 20.5 % (25-40); Mean Corpuscular HGB Conc 34.1 % (30-36); Mean Corpuscular Volume 93.8 fL (80-100); Monocytes Absolute Auto 400 /uL (0-900); Monocytes Percent Auto 5.5 % (3-14); Neutrophils Absolute Auto 5500 /uL (1500-7000); Platelet Count 284 X10^3/uL (150-400); Red Blood Cell Count 4.49 X10^6/uL (4.0-5.2); Red Cell Distribution Width 13.4 % (11.6-14.8); White Blood Cell Count 7.9 X10^3/uL (4.5-11.0)
[2025-03-25 10:07] LABS: Alanine Aminotransferase 35 IU/L (<35); Albumin 4.5 g/dL (3.5-5.0); Albumin Globulin Ratio 1.6 (1.0-2.8); Alkaline Phosphatase 93 U/L (38-126); Aspartate Aminotransferase 36 IU/L (14-36); BUN Creatinine Ratio 25.9 (6-22); Bilirubin Total 0.7 mg/dL (0.2-1.3); Blood Urea Nitrogen 15 mg/dL (7-17); Calcium 9.4 mg/dL (8.4-10.2); Carbon Dioxide 24 mmol/L (22-32); Chloride 105 mmol/L (98-107); Cholesterol 266 mg/dL (140-199); Estimated Glomerular Filt Rate > 60 mL/min (>60); Globulin 2.8 g/dL (1.7-4.1); Glucose 94 mg/dL (70-99); HDL Cholesterol 58 mg/dL (40-60); HEMOLYSIS 27 (0-50); LDL Cholesterol Calculated 174 mg/dL (<100); Potassium 4.5 mmol/L (3.4-5.1); Sodium 137 mmol/L (137-145); Total Protein 7.3 g/dL (6.3-8.2); Triglycerides 170 mg/dL (35-150)
== END ==
PROVIDERS: Family Provider Family Medicine; PCP Family Medicine; Referring Provider Family Medicine; Visit Provider Family Medicine
DX: E78.00 Pure hypercholesterolemia, unspecified (principal); Z79.899 Other long term (current) drug therapy
CPT/HCPCS: 36415; 80053; 80061; 85025

== ENCOUNTER → 2025-07-23 09:50 | Outpatient (CLI) | payer MEDICARE, SELFPAY ==
[2024-03-06 18:57] VITALS: BMI 28.0
--- NOTE | 2025-07-23 09:51 | DI.RAD.S_ITS ---
PROCEDURE: XR LUMBAR SPINE MIN 4V INDICATIONS: low back pain TECHNIQUE: 5 views of the lumbar spine were acquired, including bilateral oblique views. COMPARISON: None. FINDINGS: Bones: 5 nonrib-bearing vertebrae are present. There is normal bony alignment. Severe L3-L4 through L5-S1 and moderate L2-L3 disc height loss with adjacent endplate sclerosis and multilevel anterior osteophytosis. No vertebral body compression fractures. No suspicious bony lesions. Soft tissues: Overlying bowel gas pattern is normal. Atherosclerotic vascular calcifications. No suspicious soft tissue calcifications. Right upper quadrant surgical clips. Oblique images: No pars defects. IMPRESSION: Degenerative change of the lumbar spine without evidence of acute bony abnormality. Dictated by: Adilson Bhagat M.D. on 07/26/2025 at 5:53 Approved by: Adilson Bhagat M.D. on 07/26/2025 at 5:54
== END ==
PROVIDERS: Family Provider Family Medicine; PCP Family Medicine; Referring Provider Physical Medicine & Rehabilitation; Visit Provider Physical Medicine & Rehabilitation
DX: M47.816 Spondylosis without myelopathy or radiculopathy, lumbar region (principal); M54.50 Low back pain, unspecified
CPT/HCPCS: 72110

== ENCOUNTER → 2025-08-10 | Outpatient (CLI) | payer MEDICARE, SELFPAY ==
[2024-03-06 18:57] VITALS: BMI 28.0
--- NOTE | 2025-08-10 15:14 | DI.MRI.S_ITS ---
PROCEDURE: MR LUMBAR SPINE WO CON INDICATIONS: low back pain radiating to right lower limb TECHNIQUE: Noncontrast sagittal T1 spin echo and T2 fast echo, sagittal STIR, and T2 fast spin echo through the lumbar spine. In cases with scoliosis, additional coronal T2 fast spin echo may be performed. COMPARISON: [facility], , L-SPINE WITHOUT CONTRAST, 01/23/2018, 9:06. FINDINGS: Image quality: Excellent. Alignment and Curvature: Mild levo curvature of the lumbar spine centered at L3-L4. Bone Marrow: Modic type 1 endplate changes at L3-L4, new from prior. Predominantly Modic type 2 endplate changes at L5-S1 (previously type 1). Chronic compression deformity of T11. No acute compression fractures. Spinal Cord: Conus medullaris terminates at the L1 level. Visualized cord demonstrates normal signal and size. Paraspinous Soft Tissues: No paravertebral masses. T12-L1: No spinal canal or neural foraminal stenosis. L1-L2: Mild facet and ligamentum flavum hypertrophy. No spinal canal or neural foraminal stenosis. L2-L3: Left eccentric disc bulge with central annular fissure, which is new from prior. Mild bilateral facet and ligamentum flavum hypertrophy. Minimal spinal canal and neural foraminal narrowing bilaterally, similar to prior. L3-L4: Increased size of disc bulge, with similar bilateral facet and ligamentum flavum hypertrophy, causing moderate spinal canal stenosis, significantly increased from prior. Increased [id number] right neural foraminal stenosis. New effacement of the bilateral lateral recesses. Minimal left neural foraminal narrowing. L4-L5: Similar disc bulge and bilateral moderate facet and ligamentum flavum hypertrophy causing similar mild spinal canal stenosis and moderate bilateral neural foraminal stenosis. L5-S1: Similar disc bulge and mild bilateral facet hypertrophy no spinal canal stenosis. Similar mild right neural foraminal stenosis, and moderate to severe left neural foraminal stenosis. IMPRESSION: Multilevel degenerative changes of the lumbar spine, progressed at L3-L4, where there is increased size of disc bulge causing moderate spinal canal stenosis, effacement of the lateral recesses, and increased mild to moderate right neural foraminal stenosis. Dictated by: Brandyn Casarez M.D. on 08/10/2025 at 18:02 Approved by: Brandyn Casarez M.D. on 08/10/2025 at 18:18
== END ==
LOC: MRI 15:13
PROVIDERS: Family Provider Family Medicine; PCP Family Medicine; Referring Provider Family Medicine; Visit Provider Physical Medicine & Rehabilitation
DX: M47.26 Other spondylosis with radiculopathy, lumbar region (principal); M47.27 Other spondylosis with radiculopathy, lumbosacral region; M51.16 Intervertebral disc disorders with radiculopathy, lumbar region; M51.17 Intervertebral disc disorders with radiculopathy, lumbosacral region; M48.061 Spinal stenosis, lumbar region without neurogenic claudication; M48.07 Spinal stenosis, lumbosacral region
CPT/HCPCS: 72148